=== PATIENT | male | born 1990 | race Caucasian/White ===

== ENCOUNTER 2019-01-15 03:47 | Inpatient (IN) | payer BC ==
[~2019-01-15] VITALS: Ht 185.4 cm; Wt 85.2 kg
[2019-01-15] MEDS ORDERED: SODIUM CHLORIDE 0.9% 1,000 ML IV ONE ×2 (05:06→06:32)
[2019-01-15] MEDS ORDERED: PROMETHAZINE HCL 25 MG/ML 1ML ONE (05:08)
[2019-01-15] MEDS ORDERED: PROMETHAZINE HCL 25 MG/ML 1ML IV ONE (05:15)
[2019-01-15] MEDS ORDERED: PROCHLORPERAZINE EDISYLATE 5 MG/ML 2ML VIAL IV ONE (05:45)
[2019-01-15] MEDS ORDERED: HYDROmorphone HCL 2 MG/ML VL IV ONE ×2 (05:45→12:30)
[2019-01-15] MEDS ORDERED: LORazepam 2MG/ML-1ML VIAL IV ONE (06:45)
[2019-01-15 07:36] LABS: Albumin 3.3 g/dL (3.4-5.0); BUN/Creatinine Ratio 12.5; Calcium 7.7 mg/dL (8.5-10.1); Magnesium 1.5 mg/dL (1.6-2.6); Potassium 3.4 mmol/L (3.5-5.1)
[2019-01-15 07:41] LABS: Hematocrit 25.8 % (41.0-53.0); Hemoglobin 8.7 g/dL (13.5-17.5); Mean Corpuscular Hemoglobin 31.3 pg (28.0-32.0); Mean Corpuscular Hgb Conc. 33.6 g/dL (32.0-36.0); Mean Corpuscular Volume 93.1 fL (80.0-100.0); Platelet Count (auto) 399 10^3/uL (140-450); Red Blood Cells 2.77 10^6/uL (4.5-5.90); Red Cell Distribution Width 17.4 % (11.8-14.3); White Blood Cell 18.9 10^3/uL (4.4-10.8)
[2019-01-15 07:42] LABS: Bilirubin, Total 0.2 mg/dL (0.2-1.0); Total Protein 6.2 g/dL (6.4-8.2)
[2019-01-15 07:44] LABS: Basophils % (manual) 0 (0.0-2.0); Blast Cells 0; Eosinophils % (manual) 0 (0-7); Metamyelocytes % 0; Myelocytes % 0; Promyelocytes % 0; Reactive Lymphocytes 0
[2019-01-15] MEDS ORDERED: MORPHINE SULFATE 4 MG/ML SYR/VIAL IV PRN (09:45)
[2019-01-15] MEDS ORDERED: NITROGLYCERIN 0.4 MG SL TAB SL PRN (09:45)
[2019-01-15] MEDS ORDERED: ACETAMINOPHEN 500 MG TAB PO PRN (09:45)
[2019-01-15 09:59] LABS: % Iron Saturation 6.1 % (20-55); Band Neutrophils % (manual) 2; Lymphocytes % (manual) 7 (10.0-50.0); Monocytes % (manual) 18 (0-12)
[2019-01-15] MEDS: SODIUM CHLORIDE 0.9% 1,000 ML IV SCH ×2 (10:16→17:50)
[2019-01-15] MEDS: cefTRIAXone 1GM/50ML D5W 50 ML IV SCH (10:16)
[2019-01-15] MEDS: HYDROmorphone HCL 2 MG/ML VL IV PRN ×3 (10:18→21:13)
[2019-01-15] MEDS: ONDANSETRON HCL 4 MG/2 ML VIAL IV PRN ×3 (10:18→21:17)
[2019-01-15] MEDS: AZITHROMYCIN 500MG/ 250ML 250 ML IV SCH (10:30)
[2019-01-15] MEDS: IPRATROPIUM BROM 0.5 MG/2.5ML INH SOL NEB SCH ×2 (10:42→19:34)
[2019-01-15] MEDS: ALBUTEROL SULF 2.5 MG/0.5ML(0.5%) NEB SOLN NEB SCH ×2 (10:42→19:34)
[2019-01-15 12:08] VITALS: BP 155/98
[2019-01-15] MEDS ORDERED: GADOPENTETATE DIMEGLUMINE (10MMOL/20 ML) VIAL IV ONE (12:16)
[2019-01-15 12:44] LABS: Urine Bacteria NONE SEEN /hpf (None Seen); Urine Blood Negative /uL (Negative); Urine Specific Gravity 1.013 (1.001-1.035); Urine WBC 1 /hpf (0 - 3)
[2019-01-15] MEDS: LORazepam 0.5 MG TAB PO PRN (13:09)
--- NOTE | 2019-01-15 17:30 | NUR ---
patient arrived to the floor from er via stretcher, family at bedside, he ambulated to the room with a steady gait, was oriented to the room, belongings were noted, bed placed to lowest position, physical assessment performed, home medications reviewed, admitted for pneumonia, denies difficulty breathing, no sob, vs are stable.
[2019-01-15 17:49] VITALS: BP 143/92
[2019-01-15 17:52] VITALS: BP 143/92
[2019-01-15] MEDS ORDERED: METH4TAB7 PO (18:33)
[2019-01-15] MEDS ORDERED: PRO10T PO (18:33)
[2019-01-15] MEDS ORDERED: OMEP20TA PO (18:33)
[2019-01-15] MEDS ORDERED: ONDA-143 PO (18:33)
[2019-01-15] MEDS ORDERED: LORA1TAB12 PO (18:33)
[2019-01-15] MEDS ORDERED: MORP60TA25 PO (18:33)
[2019-01-15] MEDS ORDERED: NAP500T PO (18:33)
[2019-01-15] MEDS: HYDROcodone-ACET 5/325MG TAB PO PRN (18:43)
[2019-01-15] MEDS: DOCUSATE SOD 100 MG CAP PO SCH (21:14)
[2019-01-15 22:00] VITALS: BP 148/39
[2019-01-16] MEDS: HYDROcodone-ACET 5/325MG TAB PO PRN ×3 (00:34→19:41)
--- NOTE | 2019-01-16 04:42 | NUR ---
Pain assessment: Patient said that he don't have pain at this time . Will continue to monitor.
[2019-01-16 04:59] VITALS: BP 144/73
[2019-01-16] MEDS: ALBUTEROL SULF 2.5 MG/0.5ML(0.5%) NEB SOLN NEB SCH ×5 (05:40→21:51)
[2019-01-16] MEDS: IPRATROPIUM BROM 0.5 MG/2.5ML INH SOL NEB SCH ×5 (05:40→21:51)
[2019-01-16 07:06] LABS: Hematocrit 26.9 % (41.0-53.0); Hemoglobin 9.1 g/dL (13.5-17.5); Mean Corpuscular Hemoglobin 31.8 pg (28.0-32.0); Mean Corpuscular Hgb Conc. 33.7 g/dL (32.0-36.0); Mean Corpuscular Volume 94.5 fL (80.0-100.0); Platelet Count (auto) 391 10^3/uL (140-450); Red Blood Cells 2.84 10^6/uL (4.5-5.90); Red Cell Distribution Width 17.6 % (11.8-14.3); White Blood Cell 7.6 10^3/uL (4.4-10.8)
[2019-01-16] MEDS: LORazepam 0.5 MG TAB PO PRN (07:09)
[2019-01-16] MEDS: HYDROmorphone HCL 2 MG/ML VL IV PRN ×3 (07:09→16:29)
[2019-01-16] MEDS: SODIUM CHLORIDE 0.9% 1,000 ML IV SCH ×2 (07:10→16:00)
[2019-01-16 07:11] LABS: BUN/Creatinine Ratio 10.9; Calcium 8.1 mg/dL (8.5-10.1); Potassium 3.6 mmol/L (3.5-5.1)
[2019-01-16 07:18] LABS: Basophils % (manual) 0 (0.0-2.0); Blast Cells 0; Eosinophils % (manual) 0 (0-7); Metamyelocytes % 0; Myelocytes % 0; Promyelocytes % 0; Reactive Lymphocytes 0
--- NOTE | 2019-01-16 07:50 | NUR ---
Opening Shift Note Assumed care of patient, awake and alert and oriented x4. No S/S of distress/SOB or pain. Instructed on POC and to call for assist PRN, will continue to monitor for changes. Patient offered urinal for safety since feels dizzy since admission yet refused.
[2019-01-16] MEDS: cefTRIAXone 1GM/50ML D5W 50 ML IV SCH (08:36)
[2019-01-16] MEDS: ONDANSETRON HCL 4 MG/2 ML VIAL IV PRN ×2 (08:36→16:38)
[2019-01-16 09:42] VITALS: BP 131/60
--- NOTE | 2019-01-16 10:46 | NUR ---
Dr Beauchamp at bedside, made aware patient requesting pain medications.
[2019-01-16] MEDS: DOCUSATE SOD 100 MG CAP PO SCH ×2 (10:49→21:43)
[2019-01-16] MEDS: AZITHROMYCIN 500MG/ 250ML 250 ML IV SCH (10:49)
[2019-01-16] MEDS ORDERED: HYDROCORTISONE ACET 25 MG RECTAL SUPP PR ONE (11:00)
[2019-01-16 13:30] VITALS: BP 119/66
[2019-01-16] MEDS ORDERED: POLYETHYLENE GLYCOL 17 GM PWDR PO ONE (14:00)
[2019-01-16 14:22] LABS: Band Neutrophils % (manual) 5; Lymphocytes % (manual) 25 (10.0-50.0); Monocytes % (manual) 18 (0-12)
[2019-01-16 17:00] VITALS: BP 148/74
[2019-01-16] MEDS ORDERED: LACTULOSE 20Gm/30ML SOLN PO PRN (17:30)
[2019-01-16] MEDS ORDERED: POLYETHYLENE GLYCOL 17 GM PWDR PO PRN (17:30)
--- NOTE | 2019-01-16 17:32 | NUR ---
Dr Mayen made aware that patient continues to c/o dizziness and requesting something for dizziness. New order received for antivert 25mg Q12hP, lactulose 30 mL daily PRN, and Miralax 17gm daily PRN. Will continue to monitor.
[2019-01-16] MEDS: MECLIZINE HCL 25 MG TAB PO PRN (17:40)
--- NOTE | 2019-01-16 19:15 | NUR ---
Patient care and report handed off to Britany WORTHINGTON.
--- NOTE | 2019-01-16 19:30 | NUR ---
ASSUMED CARE, PT. AWAKE, RELATIVE AT BEDSIDE, NO C/O PAIN, NO SOB.
[2019-01-16] MEDS ORDERED: HYDROcodone-ACET 7.5/325MG TAB PO PRN (20:45)
[2019-01-16] MEDS: HYDROCORTISONE ACET 25 MG RECTAL SUPP PR SCH ×2 (21:43→22:00)
[2019-01-16 22:00] VITALS: BP 137/70
[2019-01-17] MEDS ORDERED: POLYETHYLENE GLYCOL 17 GM PWDR PO PRN
[2019-01-17] MEDS: SODIUM CHLORIDE 0.9% 1,000 ML IV SCH ×2 (01:45→11:03)
[2019-01-17] MEDS: HYDROmorphone HCL 2 MG/ML VL IV PRN ×4 (04:22→17:06)
[2019-01-17] MEDS: ONDANSETRON HCL 4 MG/2 ML VIAL IV PRN ×3 (04:22→17:48)
[2019-01-17 04:43] LABS: Hematocrit 28.2 % (41.0-53.0); Hemoglobin 9.3 g/dL (13.5-17.5); Mean Corpuscular Hemoglobin 31.5 pg (28.0-32.0); Mean Corpuscular Hgb Conc. 33.1 g/dL (32.0-36.0); Platelet Count (auto) 434 10^3/uL (140-450); Red Blood Cells 2.97 10^6/uL (4.5-5.90); Red Cell Distribution Width 17.8 % (11.8-14.3); White Blood Cell 8.4 10^3/uL (4.4-10.8)
[2019-01-17 04:53] LABS: BUN/Creatinine Ratio 13.6; Calcium 8.2 mg/dL (8.5-10.1); Potassium 3.9 mmol/L (3.5-5.1)
[2019-01-17 05:00] VITALS: BP 145/92
[2019-01-17 05:03] LABS: Basophils % (manual) 0 (0.0-2.0); Blast Cells 0; Eosinophils % (manual) 0 (0-7); Metamyelocytes % 0; Myelocytes % 0; Promyelocytes % 0; Reactive Lymphocytes 0
[2019-01-17] MEDS: MECLIZINE HCL 25 MG TAB PO PRN (05:40)
[2019-01-17] MEDS: IPRATROPIUM BROM 0.5 MG/2.5ML INH SOL NEB SCH ×3 (06:03→18:29)
[2019-01-17] MEDS: ALBUTEROL SULF 2.5 MG/0.5ML(0.5%) NEB SOLN NEB SCH ×3 (06:03→18:29)
[2019-01-17 06:47] LABS: Band Neutrophils % (manual) 7; Lymphocytes % (manual) 31 (10.0-50.0); Monocytes % (manual) 10 (0-12)
--- NOTE | 2019-01-17 07:50 | NUR ---
Opening Shift Note Assumed care of patient, patient sleeping. at bedside. No S/S of distress/SOB or pain. Will continue to monitor for changes Q1hr and PRN.
[2019-01-17 08:00] VITALS: BP 153/68
[2019-01-17 09:00] VITALS: BP 153/68
[2019-01-17] MEDS: AZITHROMYCIN 500MG/ 250ML 250 ML IV SCH (09:59)
[2019-01-17] MEDS: cefTRIAXone 1GM/50ML D5W 50 ML IV SCH (09:59)
[2019-01-17] MEDS: DOCUSATE SOD 100 MG CAP PO SCH ×2 (10:00→21:37)
[2019-01-17] MEDS: HYDROCORTISONE ACET 25 MG RECTAL SUPP PR SCH ×2 (10:00→21:37)
--- NOTE | 2019-01-17 10:00 | NUR ---
AT BEDSIDE DR. BROWN AT BEDSIDE DISCUSSING POC WITH PATIENT.
--- NOTE | 2019-01-17 12:00 | NUR ---
ROUNDING PATIENT SLEEPING IN BED. NO S/S OF DISTRESS NOTED. WILL CONTINUE TO MONITOR.
[2019-01-17 13:00] VITALS: BP 138/69
[2019-01-17] MEDS: MECLIZINE HCL 25 MG TAB PO SCH ×2 (13:35→21:37)
[2019-01-17 17:00] VITALS: BP 154/88
--- NOTE | 2019-01-17 18:38 | NUR ---
END OF SHIFT PATIENT RESTING IN BED. NO S/S OF DISTRESS. INSTRUCTED PATIENT TO CALL PRN. BED IN LOWEST LOCKED POSITION, CALL LIGHT WITHIN REACH. ENDORSED CARE TO ELIN RANDALL.
--- NOTE | 2019-01-17 19:10 | NUR ---
assumed care, pt. awake, relative at bedside, no c/o pain and nausea at this time, no sob.
[2019-01-17 22:00] VITALS: BP 132/63
[2019-01-18] MEDS: SODIUM CHLORIDE 0.9% 1,000 ML IV SCH (03:25)
[2019-01-18 05:00] VITALS: BP 136/64
[2019-01-18] MEDS: MECLIZINE HCL 25 MG TAB PO SCH ×3 (05:42→08:18)
[2019-01-18] MEDS: ONDANSETRON HCL 4 MG/2 ML VIAL IV PRN ×2 (08:18→18:00)
[2019-01-18] MEDS: HYDROmorphone HCL 2 MG/ML VL IV PRN ×3 (08:19→18:00)
[2019-01-18] MEDS: IPRATROPIUM BROM 0.5 MG/2.5ML INH SOL NEB SCH ×3 (08:20→13:35)
[2019-01-18] MEDS: ALBUTEROL SULF 2.5 MG/0.5ML(0.5%) NEB SOLN NEB SCH ×3 (08:20→13:35)
--- NOTE | 2019-01-18 08:42 | NUR ---
Opening Shift Note Assuming care of patient at this time. Patient is awake, alert, and oriented x4. Patient states he is having pain 7/10 in his back at this time. Will medicate per doctor's orders. Patient is resting in bed with his , bed is locked and lowered with side rails up x2. Instructed patient on the plan of care for today and to call for assistance as needed. Call light within reach. Will continue to monitor.
[2019-01-18 09:00] VITALS: BP 128/79
[2019-01-18] MEDS: cefTRIAXone 1GM/50ML D5W 50 ML IV SCH (09:19)
[2019-01-18] MEDS: DOCUSATE SOD 100 MG CAP PO SCH (09:19)
[2019-01-18] MEDS: HYDROCORTISONE ACET 25 MG RECTAL SUPP PR SCH (09:19)
[2019-01-18] MEDS ORDERED: AZITHROMYCIN 250 MG TAB PO SCH (10:00)
[2019-01-18 10:39] VITALS: BP 128/79
--- NOTE | 2019-01-18 10:45 | NUR ---
Re: at bedside Dr. Beauchamp at bedside. Patient to be discharged, awaiting social service consult for walker.
--- NOTE | 2019-01-18 11:55 | NUR ---
I faxed walker order to [employer].
--- NOTE | 2019-01-18 14:39 | NUR ---
Fax to [facility] Sent a fax to [facility] with prescription from Called [facility] to see if fax was received. Was notified that fax could take 1-2 hours before it shows up in the system. Will call back.
--- NOTE | 2019-01-18 16:08 | NUR ---
Call to [facility] Patient's walker will be delivered between 1529 and 1929. Requested walker to be delivered to home if it's going to be later due to patient being discharged. Awaiting a return call.
[2019-01-18 17:00] VITALS: BP 130/84
--- NOTE | 2019-01-18 18:39 | NUR ---
Re; Discharge Discharge instructions given as ordered. Encourage to follow up with PMD as instructed. All questions and concerns addressed. Patient verbalized understanding. Portacath access discontinued. Walker delivered before discharge. Patient taken to vehicle via walker with all personal belongings, accompanied by staff and family member. No distress noted at time of departure.
== END 2019-01-18 18:35 | disposition home or self-care (01) | DRG 871 ==
LOC: ER 03:49 → OVERFLOW 09:39 → CENTRAL 17:30
PROVIDERS: ADMIT Nurse Practitioner Acute Care; ATTEND Internal Medicine
DX: A41.9 Sepsis, unspecified organism (principal); J18.0 Bronchopneumonia, unspecified organism; E44.1 Mild protein-calorie malnutrition; D64.9 Anemia, unspecified; E86.0 Dehydration; H83.09 Labyrinthitis, unspecified ear; E87.6 Hypokalemia; K64.9 Unspecified hemorrhoids; Z85.47 Personal history of malignant neoplasm of testis; Z90.79 Acquired absence of other genital organ(s); Z68.24 Body mass index [BMI] 24.0-24.9, adult
CPT/HCPCS: 36415; 70450; 70553; 71045; 71250; 74176; 80048; 80053; 81001; 83540; 83550; 83735; 84484; 85007; 85027; 87040; 93005; 94640; 94761; 96361; 96365; 96367; 96375; A6257; G0378; J0696; J2405

== ENCOUNTER 2019-02-07 18:15 | Inpatient (IN) | payer BC ==
[~2019-02-07] VITALS: Ht 185.4 cm; Wt 86.4 kg
[~2019-02-07 18:15] MED LIST: LORA1TAB12 PO; METH4TAB7 PO; MORP60TA25 PO; NAP500T PO; OMEP20TA PO; ONDA-143 PO; PRO10T PO
[2019-02-07] MEDS ORDERED: ONDANSETRON HCL 4 MG/2 ML VIAL IV ONE (18:45)
[2019-02-07] MEDS ORDERED: HYDROmorphone HCL 2 MG/ML VL IV ONE (18:45)
[2019-02-07] MEDS ORDERED: IOHEXOL 350 MG/ML 100ML IJ ONE (18:56)
[2019-02-07 19:35] LABS: Basophils # (auto) 0.1 uL; Eosinophils # (auto) 0.4 uL; Lymphocytes # (auto) 2.1 uL; Lymphocytes % (auto) 20.8 % (10.0-50.0); Mean Corpuscular Hemoglobin 30.5 pg (28.0-32.0); Mean Corpuscular Hgb Conc. 33.2 g/dL (32.0-36.0); Mean Corpuscular Volume 91.8 fL (80.0-100.0); Monocytes # (auto) 0.8 uL; Monocytes % (auto) 8.1 % (0.0-12.0); Neutrophils # (auto) 6.6 uL; Neutrophils % (auto) 66.1 % (37.0-80.0); Platelet Count (auto) 191 10^3/uL (140-450); Red Blood Cells 3.27 10^6/uL (4.5-5.90); Red Cell Distribution Width 14.9 % (11.8-14.3); White Blood Cell 9.9 10^3/uL (4.4-10.8)
[2019-02-07 19:45] LABS: Albumin 3.4 g/dL (3.4-5.0); BUN/Creatinine Ratio 11.3; Potassium 3.6 mmol/L (3.5-5.1)
[2019-02-07 19:48] LABS: Bilirubin, Total 0.4 mg/dL (0.2-1.0); Total Protein 6.1 g/dL (6.4-8.2)
[2019-02-07] MEDS ORDERED: LIDOCAINE 1% HCL (LOCAL ANESTH.) INJ 20ML MDV ONE (20:14)
[2019-02-07] MEDS ORDERED: LIDOCAINE W/ EPINEPHRINE 1% 20ML VIAL ONE (20:17)
[2019-02-07] MEDS ORDERED: NITROGLYCERIN 0.4 MG SL TAB SL PRN (22:00)
[2019-02-07] MEDS ORDERED: LEVOFLOXACIN 500MG 100 ML IV ONE (22:00)
[2019-02-07] MEDS ORDERED: MORPHINE SULF INJ 2 MG/ML SYRINGE 1ML IV PRN (22:00)
[2019-02-07] MEDS ORDERED: ONDANSETRON HCL 4 MG/2 ML VIAL IV PRN (22:00)
[2019-02-07] MEDS ORDERED: TEMAZEPAM 15 MG CAP PO PRN (22:00)
[2019-02-07] MEDS: FAMOTIDINE 20 MG TAB PO SCH (22:30)
[2019-02-07] MEDS: MORPHINE SULF 15mg ER tab PO SCH (22:30)
[2019-02-07 23:00] VITALS: BP 130/68
[2019-02-07] MEDS: MORPHINE SULFATE 4 MG/ML SYR/VIAL IV PRN (23:21)
[2019-02-08] VITALS (7 sets, daily range): BP systolic 104–175; BP diastolic 40–81
[2019-02-08] MEDS: ACETAMINOPHEN 325 MG TAB PO PRN (01:31)
[2019-02-08] MEDS: MORPHINE SULFATE 4 MG/ML SYR/VIAL IV PRN ×4 (03:21→14:29)
[2019-02-08] MEDS: LORazepam 0.5 MG TAB PO PRN ×2 (03:22→22:04)
[2019-02-08] MEDS: FAMOTIDINE 20 MG TAB PO SCH ×2 (09:46→21:31)
[2019-02-08] MEDS: MORPHINE SULF 15mg ER tab PO SCH (09:46)
[2019-02-08] MEDS ORDERED: LEVOFLOXACIN 500MG 100 ML IV SCH (10:00)
[2019-02-08] MEDS: MORPHINE SULFATE 10 MG/5 ML ORAL SOLN PO PRN ×3 (15:49→21:31)
[2019-02-08] MEDS: MORPHINE SULF 30 mg ER tab PO SCH (22:04)
[2019-02-09] MEDS: MORPHINE SULFATE 10 MG/5 ML ORAL SOLN PO PRN ×7 (00:22→21:00)
[2019-02-09 05:00] VITALS: BP 144/69
[2019-02-09 09:00] VITALS: BP 115/62
[2019-02-09] MEDS: FAMOTIDINE 20 MG TAB PO SCH ×2 (10:24→21:57)
[2019-02-09] MEDS: MORPHINE SULF 30 mg ER tab PO SCH ×3 (10:25→21:57)
[2019-02-09] MEDS ORDERED: HYDR2TAB58 PO (12:02)
[2019-02-09] MEDS ORDERED: ALPR0.5T7 PO (12:02)
[2019-02-09] MEDS: ACETAMINOPHEN 325 MG TAB PO PRN (12:57)
[2019-02-09 13:00] VITALS: BP 129/68
[2019-02-09 16:43] VITALS: BP 109/49
[2019-02-09] MEDS: LORazepam 0.5 MG TAB PO PRN (17:10)
[2019-02-09 22:00] VITALS: BP 154/71
[2019-02-10] MEDS: MORPHINE SULFATE 10 MG/5 ML ORAL SOLN PO PRN ×6 (03:50→23:47)
[2019-02-10 04:46] VITALS: BP 133/61
[2019-02-10] MEDS: ALBUTEROL SULF 2.5 MG/0.5ML(0.5%) NEB SOLN NEB PRN ×2 (07:09→23:18)
[2019-02-10 09:00] VITALS: BP 138/68
[2019-02-10] MEDS: FAMOTIDINE 20 MG TAB PO SCH ×2 (10:23→22:04)
[2019-02-10] MEDS: MORPHINE SULF 30 mg ER tab PO SCH ×2 (11:54→22:04)
[2019-02-10 13:00] VITALS: BP 145/67
[2019-02-10 17:00] VITALS: BP 109/57
[2019-02-10 22:00] VITALS: BP 119/52
[2019-02-11] MEDS: MORPHINE SULFATE 10 MG/5 ML ORAL SOLN PO PRN ×7 (03:03→23:02)
[2019-02-11] MEDS: ACETAMINOPHEN 325 MG TAB PO PRN (03:11)
[2019-02-11 04:23] VITALS: BP 119/52
[2019-02-11 05:00] VITALS: BP 128/52
[2019-02-11 08:00] VITALS: BP 146/61
[2019-02-11 09:21] VITALS: BP 146/61
[2019-02-11] MEDS: MORPHINE SULF 30 mg ER tab PO SCH ×2 (09:30→22:06)
[2019-02-11] MEDS: FAMOTIDINE 20 MG TAB PO SCH ×2 (09:30→22:03)
[2019-02-11 12:24] VITALS: BP 109/62
[2019-02-11 17:18] VITALS: BP 122/78
[2019-02-11 17:43] LABS: INR 0.91 (0.9-1.15); Partial Thromboplastin Time 30.1 sec (23.78-33.04); Prothrombin Time 9.8 sec (9.27-12.13)
[2019-02-11] MEDS: NAPROXEN 500 MG TAB PO PRN (18:01)
[2019-02-11] MEDS: LORazepam 0.5 MG TAB PO PRN (22:10)
[2019-02-12] MEDS: NAPROXEN 500 MG TAB PO PRN (00:30)
[2019-02-12] MEDS: MORPHINE SULFATE 10 MG/5 ML ORAL SOLN PO PRN ×5 (02:22→20:58)
[2019-02-12 05:00] VITALS: BP 111/55
[2019-02-12 09:02] VITALS: BP 116/62
[2019-02-12] MEDS: FAMOTIDINE 20 MG TAB PO SCH ×2 (09:28→20:55)
[2019-02-12] MEDS: MORPHINE SULF 30 mg ER tab PO SCH ×2 (09:30→21:59)
[2019-02-12] MEDS ORDERED: POTASSIUM CHL 20 Meq TABLET PO ONE (12:15)
[2019-02-12] MEDS ORDERED: FUROSEMIDE 20 MG/2 ML VIAL IV ONE (12:15)
[2019-02-12] MEDS ORDERED: MORPHINE SULF INJ 2 MG/ML SYRINGE 1ML IV PRN (12:30)
[2019-02-12 12:46] VITALS: BP 153/66
[2019-02-12] MEDS: ALPRAZolam 0.5 MG TAB PO PRN ×2 (13:50→21:55)
[2019-02-12 17:28] VITALS: BP 109/54
[2019-02-12] MEDS: ALBUTEROL SULF 2.5 MG/0.5ML(0.5%) NEB SOLN NEB PRN (20:11)
[2019-02-12 22:00] VITALS: BP 123/60
[2019-02-13] MEDS: MORPHINE SULFATE 10 MG/5 ML ORAL SOLN PO PRN ×4 (03:50→14:20)
[2019-02-13 05:00] VITALS: BP 98/50
[2019-02-13] MEDS: NAPROXEN 500 MG TAB PO PRN (05:13)
[2019-02-13] MEDS: ALPRAZolam 0.5 MG TAB PO PRN ×2 (05:53→16:36)
[2019-02-13] MEDS: ALBUTEROL SULF 2.5 MG/0.5ML(0.5%) NEB SOLN NEB PRN (07:07)
[2019-02-13] MEDS ORDERED: guaiFENesin-DM 100/10mg/5ml SYR PO ONE (07:15)
[2019-02-13 09:14] VITALS: BP 135/65
[2019-02-13] MEDS: MORPHINE SULF 30 mg ER tab PO SCH (09:30)
[2019-02-13] MEDS: FAMOTIDINE 20 MG TAB PO SCH (09:30)
[2019-02-13 12:03] VITALS: BP 134/67
[2019-02-13 17:01] VITALS: BP 128/66
== END 2019-02-13 17:56 | disposition home or self-care (01) | DRG 199 ==
LOC: ER 18:18 → TELE 22:07 → TELE-WESTW 22:58 → WEST WING 02-08 15:29
PROVIDERS: ADMIT Nurse Practitioner; ATTEND Internal Medicine
PROC: 02HV33Z Insertion of Infusion Device into Superior Vena Cava, Percutaneous Approach (ICD-10-PCS; principal; 2019-02-07)
PROC: 0W9930Z Drainage of Right Pleural Cavity with Drainage Device, Percutaneous Approach (ICD-10-PCS; 2019-02-08)
DX: J93.83 Other pneumothorax (principal); J96.00 Acute respiratory failure, unspecified whether with hypoxia or hypercapnia; J98.11 Atelectasis; G89.29 Other chronic pain; C62.90 Malignant neoplasm of unspecified testis, unspecified whether descended or undescended; D64.9 Anemia, unspecified; I10 Essential (primary) hypertension; Z85.47 Personal history of malignant neoplasm of testis
CPT/HCPCS: 36415; 36600; 71045; 71275; 80053; 82805; 85025; 85610; 85730; 87081; 93005; 94640; 94761; 96365; 96367; 96375; A6257; G0378; J1642; J1956; J2001; J2405

== ENCOUNTER 2019-02-19 10:08 | Inpatient (IN) | payer BC ==
[~2019-02-19] VITALS: Ht 185.4 cm; Wt 82.0 kg
[~2019-02-19 10:08] MED LIST changes: +ALPR0.5T7 PO; +HYDR2TAB58 PO
[2019-02-19] MEDS ORDERED: ONDANSETRON HCL 4 MG/2 ML VIAL ONE (10:15)
[2019-02-19] MEDS ORDERED: LIDOCAINE 2% (LOCAL ANESTH.) PF 5ml SDV ONE (10:17)
[2019-02-19] MEDS ORDERED: ONDANSETRON HCL 4 MG/2 ML VIAL IV ONE (10:30)
[2019-02-19] MEDS ORDERED: MORPHINE SULFATE 4 MG/ML SYR/VIAL ONE (10:32)
[2019-02-19] MEDS ORDERED: SODIUM CHLORIDE 0.9% 1,000 ML IV ONE ×2 (10:44)
[2019-02-19] MEDS ORDERED: MORPHINE SULFATE 4 MG/ML SYR/VIAL IV ONE (10:45)
[2019-02-19] MEDS ORDERED: HYDROmorphone HCL 2 MG/ML VL IV ONE ×2 (10:45→14:00)
[2019-02-19 11:21] LABS: Basophils # (auto) 0.1 uL; Basophils % (auto) 1.1 % (0.0-2.0); Eosinophils # (auto) 0.7 uL; Eosinophils % (auto) 9.1 % (0.0-7.0); Hematocrit 33.5 % (41.0-53.0); Hemoglobin 10.9 g/dL (13.5-17.5); Lymphocytes # (auto) 1.9 uL; Lymphocytes % (auto) 25.5 % (10.0-50.0); Mean Corpuscular Hemoglobin 28.4 pg (28.0-32.0); Mean Corpuscular Hgb Conc. 32.5 g/dL (32.0-36.0); Mean Corpuscular Volume 87.4 fL (80.0-100.0); Monocytes # (auto) 0.5 uL; Monocytes % (auto) 6.9 % (0.0-12.0); Neutrophils # (auto) 4.2 uL; Neutrophils % (auto) 57.4 % (37.0-80.0); Platelet Count (auto) 297 10^3/uL (140-450); Red Blood Cells 3.84 10^6/uL (4.5-5.90); Red Cell Distribution Width 15.4 % (11.8-14.3); White Blood Cell 7.3 10^3/uL (4.4-10.8)
[2019-02-19] MEDS ORDERED: HYDROcodone-ACET 5/325MG TAB PO PRN (11:30)
[2019-02-19] MEDS ORDERED: HYDROmorphone HCL 2 MG/ML VL IV PRN (11:30)
[2019-02-19 11:37] LABS: INR 0.98 (0.9-1.15); Partial Thromboplastin Time 26.3 sec (23.78-33.04); Prothrombin Time 10.5 sec (9.27-12.13)
[2019-02-19 12:38] LABS: Anion Gap 4 (5-15); BUN/Creatinine Ratio 18.8; Blood Urea Nitrogen 15 mg/dL (7-18); Calcium 8.6 mg/dL (8.5-10.1); Carbon Dioxide 31 mmol/L (21-32); Chloride 105 mmol/L (98-107); GFR African American 147 mL/min; GFR Non-African American 121 mL/min; Glucose 94 mg/dL (74-106); Potassium 3.8 mmol/L (3.5-5.1); Sodium 140 mmol/L (136-145)
[2019-02-19 12:43] LABS: Alanine Aminotransferase 11 U/L (16-61); Alkaline Phosphatase 59 U/L (45-117); Aspartate Aminotransferase 16 U/L (15-37); Bilirubin, Total 0.3 mg/dL (0.2-1.0); Total Protein 6.2 g/dL (6.4-8.2)
[2019-02-19] MEDS ORDERED: LORazepam 2MG/ML-1ML VIAL ONE (13:59)
[2019-02-19] MEDS ORDERED: LORazepam 2MG/ML-1ML VIAL IV PRN (14:00)
[2019-02-19] MEDS ORDERED: LORazepam 2MG/ML-1ML VIAL IV ONE (14:30)
[2019-02-19 15:18] LABS: Urine Bacteria NONE SEEN /hpf (None Seen); Urine Blood Negative /uL (Negative); Urine Specific Gravity 1.018 (1.001-1.035); Urine WBC <1 /hpf (0 - 3)
[2019-02-19] MEDS ORDERED: MORPHINE SULFATE 10 MG/5 ML ORAL SOLN PO PRN (16:20)
[2019-02-19 17:00] VITALS: BP 140/76
[2019-02-19] MEDS: HYDROmorphone HCL 2 MG/ML VL IV PRN ×2 (17:43→22:03)
[2019-02-19 18:26] VITALS: BP 140/76
--- NOTE | 2019-02-19 20:10 | NUR ---
Spoke to Martin and he provided order to connect hiemlech valce to pleuravac 20 cm h2o.
--- NOTE | 2019-02-19 20:15 | NUR ---
Notified charge nurse of Heimlich valve needs to be connected to pleura vac.
--- NOTE | 2019-02-19 20:20 | NUR ---
Called CT/ radiology department to confirm CT of the chest is going to be completed. no answer.
--- NOTE | 2019-02-19 20:25 | NUR ---
washing and screening plant supervisor called for assistance for pleuravac, heimlech valve connection. awaiting arrival.
--- NOTE | 2019-02-19 20:50 | NUR ---
Called tool lathe operator to connect me to CT/ radiology department to confirm CT of the chest is going to be completed. no answer by CT/radiology department.
--- NOTE | 2019-02-19 21:00 | NUR ---
called CT and no answer.
[2019-02-19] MEDS: MORPHINE SULF 15mg ER tab PO SCH (21:10)
[2019-02-19 21:56] VITALS: BP 139/68
[2019-02-19 22:00] VITALS: BP 107/64
--- NOTE | 2019-02-19 22:00 | NUR ---
Called/paged BEDSPRING ASSEMBLER Chino Hyde paged re: anxiety and hyperacidity medication . Waiting for call back. Continue care.
[2019-02-19] MEDS: DOCUSATE SOD 100 MG CAP PO PRN (22:03)
--- NOTE | 2019-02-19 22:05 | NUR ---
heimlech valve connected to pleuravac as ordered.
--- NOTE | 2019-02-19 22:24 | NUR ---
returned call BRITTANI Gunter returned call, updated on patient status and reason for call, orders received.May give Ativan 1 mg PO and Tums 1 tab PO x 1. Continue care.
[2019-02-19] MEDS ORDERED: CALCIUM CARB 500 MG CHEW TAB PO ONE (22:30)
[2019-02-19] MEDS ORDERED: LORazepam 0.5 MG TAB PO PRN (22:30)
[2019-02-19] MEDS ORDERED: OMEP20TA PO (22:49)
[2019-02-19] MEDS ORDERED: MORP30TA PO (22:49)
[2019-02-19 23:20] VITALS: BP 140/66
--- NOTE | 2019-02-19 23:45 | NUR ---
Called radiology to confirm chest ct. no answer.
[2019-02-20 00:24] VITALS: BP 149/61
--- NOTE | 2019-02-20 00:25 | NUR ---
spoke to hospitalist eder and notified patient is having chest tightness and also having shortness of breath. Eder provided order to do ekg and have stat troponin.
--- NOTE | 2019-02-20 00:27 | NUR ---
called lab to confirm troponin draw. they advised they will be here as soon as possible
--- NOTE | 2019-02-20 00:33 | NUR ---
Called household coordinator to notify that CT/radiology is not picking up.
--- NOTE | 2019-02-20 00:40 | NUR ---
showed ekg printout to [facility] hospitalist and had him sign off on ekg. result is normal sinus rhythm. [facility] provided new order of chest xray to check patency of heimlech valve.
--- NOTE | 2019-02-20 00:45 | NUR ---
account technician at bedside to take down stairs to chest ct and chest xray.
[2019-02-20] MEDS: ONDANSETRON HCL 4 MG/2 ML VIAL IV PRN ×3 (02:02→18:15)
[2019-02-20] MEDS: HYDROmorphone HCL 2 MG/ML VL IV PRN ×6 (02:02→22:16)
--- NOTE | 2019-02-20 03:04 | NUR ---
Called CT/radiology to follow up with chest xray stat and chest ct. warehouse technician provided number to call [phone]. called that number, and they advised me that they will look into the chest xray and chest ct. Awaiting results.
--- NOTE | 2019-02-20 03:28 | NUR ---
barrett at bedside with tracy MONAE. Addendum: 02/20/19 at 0343 by Ivan Casey RN BRITTANI Hyde and MD Rice at bedside to assess patient. Krystal MONAE and Barrett PETER advanced heimlech valve, provided order to give dilauded 0.5 mg iv now one time dose, and to put chest xray schedule at 1000 am. read back and confirmed.
[2019-02-20] MEDS ORDERED: HYDROmorphone HCL 2 MG/ML VL IV ONE ×2 (03:30→20:45)
[2019-02-20] MEDS ORDERED: HYDROmorphone HCL 2 MG/ML VL ONE (03:32)
[2019-02-20 03:45] VITALS: BP 142/64
[2019-02-20 04:56] VITALS: BP 142/64
--- NOTE | 2019-02-20 07:37 | NUR ---
Provided report to Alyssa WORTHINGTON. Patient is resting comfortably in bed with no signs of distress.
--- NOTE | 2019-02-20 08:00 | NUR ---
Opening Shift Note Assumed care of patient, awake and alert, at bedside. Chest drain in place, drainage marked. On 4L N/C with humidifier. Discussed home medications, med rec updated by NOC weigher and charger. Will speak with MD about continuing home medications. No S/S of distress/SOB or pain. Instructed on POC and to call for assist PRN, will continue to monitor for changes Q1hr and PRN. NOTE: Request sent to kitchen for dinner guest tray.
[2019-02-20] MEDS: MORPHINE SULF 15mg ER tab PO SCH ×2 (08:53→21:43)
[2019-02-20] MEDS: PANTOPRAZOLE 40 MG TAB PO SCH (08:53)
--- NOTE | 2019-02-20 09:07 | NUR ---
Medicated for pain. Patient able to stand bedside to void in urinal. 200ml clear yellow liquid voided. Patient tolerated well. Call light in reach.
--- NOTE | 2019-02-20 10:00 | NUR ---
PORTABLE CXR BEDSIDE
[2019-02-20 12:04] VITALS: BP 140/65
--- NOTE | 2019-02-20 12:56 | NUR ---
ROUNDING Dr Tadeo rounding on patient. Discussed test results and pain management. MD will review home medications and update orders.
[2019-02-20] MEDS ORDERED: POLYETHYLENE GLYCOL 17 GM PWDR PO PRN (13:30)
[2019-02-20] MEDS ORDERED: POLYETHYLENE GLYCOL 17 GM PWDR PO ONE (13:30)
[2019-02-20] MEDS: ALPRAZolam 0.5 MG TAB PO SCH ×2 (14:11→21:43)
--- NOTE | 2019-02-20 14:33 | NUR ---
TELEPHONE ORDER Telephone order received from Dr Guzman to increase suction on chest tube to 35 and repeat chest x-ray now. Chest tube drainage marked at 45ml. Orders noted and carried out, patient tolerating well.
--- NOTE | 2019-02-20 15:33 | NUR ---
DR GUZMAN PAGED Patient complains of feeling "something wrong" and "pressure and pain" to left upper chest. Chest tube drainage at 65ml output. Tube free of kinks, connected to suction as ordered. Patient on 4L N/C, at bedside. Dr Guzman paged.
--- NOTE | 2019-02-20 15:39 | NUR ---
VITAL SIGNS Current vitals signs: BP 135/63, taken on left leg, Heart Rate 94, O2 96% on 4L NC.
--- NOTE | 2019-02-20 15:50 | NUR ---
DR GUZMAN BEDSIDE Dr Guzman removed dressing and assessed valve. MD changed connection on valve. Orders given, will carry out and continue to monitor.
--- NOTE | 2019-02-20 16:00 | NUR ---
Valve does not connect as MD instructed. Dressing secured. Dr Guzman paged, Charge Nurse notified and Radiology paged over head. Patient remains stable. Call light in reach.
--- NOTE | 2019-02-20 16:30 | NUR ---
Telephone orders Dr Guzman returned page, orders given and carried out. Patient states he feels much better. Family at bedside.
[2019-02-20 16:34] VITALS: BP 135/63
[2019-02-20] MEDS: LORazepam 0.5 MG TAB PO PRN (17:44)
--- NOTE | 2019-02-20 18:16 | NUR ---
ROUNDING Patient asking for medications for pain and nausea. Medicated as ordered. Provide with ice chips and water. Patient comfortable at this time. No distress or pain. Quiet environment provided for patient to rest.
[2019-02-20] MEDS: ACETAMINOPHEN 500 MG TAB PO PRN (20:18)
[2019-02-20] MEDS: CALCIUM CARB 500 MG CHEW TAB PO SCH (21:43)
[2019-02-21] MEDS: LORazepam 0.5 MG TAB PO PRN ×3 (00:57→19:47)
[2019-02-21] MEDS: HYDROmorphone HCL 2 MG/ML VL IV PRN ×6 (02:17→22:26)
[2019-02-21] MEDS: ONDANSETRON HCL 4 MG/2 ML VIAL IV PRN ×3 (02:17→18:20)
[2019-02-21 04:45] VITALS: BP 111/48
[2019-02-21] MEDS: ALPRAZolam 0.5 MG TAB PO SCH ×3 (06:18→22:01)
--- NOTE | 2019-02-21 07:00 | NUR ---
DRAINAGE 24ML OF DRAINAGE FROM CHEST TUBE. CHEST TUBE FREE OF KINKS. SUCTIONING. DRESSING SECURED. WILL CONTINUE TO MONITOR.
--- NOTE | 2019-02-21 08:00 | NUR ---
Opening Shift Note Assumed care of patient, awake and alert. No S/S of distress/SOB. Patients bedside. Per patient request, dressing to chest valve replaced and secured, drainage canister to gravity, free of kinks, draining fluid. Suction set as ordered, water seal free of leaks. Instructed on POC and to call for assist PRN, will continue to monitor for changes Q1hr and PRN. NOTE: Patient reports voiding BM this morning.
[2019-02-21] MEDS: MORPHINE SULF 15mg ER tab PO SCH ×2 (09:46→22:00)
[2019-02-21] MEDS: CALCIUM CARB 500 MG CHEW TAB PO SCH ×2 (09:46→22:00)
[2019-02-21] MEDS: PANTOPRAZOLE 40 MG TAB PO SCH (09:46)
[2019-02-21 09:47] VITALS: BP 136/84
--- NOTE | 2019-02-21 09:52 | NUR ---
ROUNDS Patients morning medications administered as ordered. Patient states "I feel much better". Patients remains bedside.
--- NOTE | 2019-02-21 10:30 | NUR ---
DR KATHERINE Tadeo rounding on patient.
--- NOTE | 2019-02-21 10:50 | NUR ---
DR RICHTER ROUNDING ON PATIENT.
--- NOTE | 2019-02-21 11:11 | NUR ---
IV removal IV site to left AC painful. Patient requests for IV to be removed. IV DC'd with clean sterile technique, catheter fully intact. Pressure dressing applied to site. Patient tolerated well. NOTE: Attempted to restart IV unsuccessful. Patient agreed to have Port accessed if ok with MD. Dr Carlyle ordoñez.
--- NOTE | 2019-02-21 11:14 | NUR ---
Telephone order T/O read back to access port.
--- NOTE | 2019-02-21 11:33 | NUR ---
KARLIE CATH ACCESSED Patient tolerated well. Dressing placed.
[2019-02-21] MEDS: ACETYLCYSTEINE 10 %(100MG/ML) SOL 4ML NEB SCH ×2 (12:00→19:30)
[2019-02-21] MEDS: IPRATROPIUM BROM 0.5 MG/2.5ML INH SOL NEB SCH ×2 (12:26→19:29)
[2019-02-21] MEDS: ALBUTEROL SULF 2.5 MG/0.5ML(0.5%) NEB SOLN NEB SCH ×2 (12:26→19:29)
[2019-02-21 14:42] VITALS: BP 126/63
[2019-02-21 14:47] VITALS: BP 136/84
--- NOTE | 2019-02-21 14:55 | NUR ---
DR ALVARADO BEDSIDE MD at bedside assessing chest tube. MD states "it looks good". MD will come back tomorrow to check on patient.
[2019-02-21 17:21] VITALS: BP 122/61
--- NOTE | 2019-02-21 18:43 | NUR ---
COMPLETE LINEN CHANGE PROVIDED.
--- NOTE | 2019-02-21 19:45 | NUR ---
RECEIVED PT IN BED, A/O X4, IN NO ACUTE DISTRESS/DISCOMFORT. PT REQUESTING FOR ATIVAN, WILL MEDICATE ORDERED. POC REVIEWED WITH PT, VERBALIZED UNDERSTANDING. ENCOURAGED USE OF IS, VERBALIZED UNDERSTANDING AND RETURNED DEMO. HEIMLICH VALVE CONNECTED TO WALL SUCTION, TUBINGS PATENT. CALL LIGHT WITHIN REACH, ENCOURAGED TO CALL IF HELP IS NEEDED. SIDE RAILS UP X2, BED IN LOWEST LOCKED POSITION. CONTINUE CARE.
[2019-02-21] MEDS: ACETAMINOPHEN 500 MG TAB PO PRN (21:07)
[2019-02-21 22:00] VITALS: BP 128/72
[2019-02-22] MEDS: ALBUTEROL SULF 2.5 MG/0.5ML(0.5%) NEB SOLN NEB SCH ×4 (01:46→19:16)
[2019-02-22] MEDS: LORazepam 0.5 MG TAB PO PRN ×3 (01:47→20:09)
[2019-02-22] MEDS: IPRATROPIUM BROM 0.5 MG/2.5ML INH SOL NEB SCH ×4 (01:47→19:16)
[2019-02-22] MEDS: ACETYLCYSTEINE 10 %(100MG/ML) SOL 4ML NEB SCH ×2 (01:47→06:00)
[2019-02-22] MEDS: HYDROmorphone HCL 2 MG/ML VL IV PRN ×6 (02:23→22:34)
[2019-02-22] MEDS: ONDANSETRON HCL 4 MG/2 ML VIAL IV PRN ×3 (02:23→22:35)
[2019-02-22 05:00] VITALS: BP 120/57
[2019-02-22] MEDS: ALPRAZolam 0.5 MG TAB PO SCH ×3 (05:44→21:38)
[2019-02-22 08:00] VITALS: BP 113/65
[2019-02-22 09:00] VITALS: BP 113/65
[2019-02-22] MEDS: MORPHINE SULF 15mg ER tab PO SCH (09:17)
[2019-02-22] MEDS: PANTOPRAZOLE 40 MG TAB PO SCH (09:17)
[2019-02-22] MEDS: CALCIUM CARB 500 MG CHEW TAB PO SCH ×2 (09:17→21:38)
--- NOTE | 2019-02-22 11:34 | NUR ---
Nutrition Assessment Notes please see attached link for complete assessment Est. Needs BW [id number] kcal (25-30 kcal/kgBW), 82-98 gms pro (1.0-1.2 gms/kgBW). Will continue to monitor pertinent labs and reassess nutrient need prn Addendum: 02/22/19 at [address] Amended: Links added.
[2019-02-22 13:00] VITALS: BP 131/66
--- NOTE | 2019-02-22 13:55 | NUR ---
SS ORDER: [facility] PH [phone] IS WORKING ON GETTING W/C TO PT, THEY ARE REVIEWING NOTES/ORDERS, IF APPROVED W/C WILL BE DELIVERED AT BEDSIDE TODAY.
--- NOTE | 2019-02-22 13:58 | NUR ---
INFORMED PRIMARY RN THAT PT/FAMILY WILL HAVE TO CALL HIS 02 COMPANY, [employer] ([phone]) FOR REFILL OF 02 TANKS, THIS 02 COMPANY WAS SET UP FOR PT ON PREVIOUS ADMISSION.
--- NOTE | 2019-02-22 15:46 | NUR ---
02 ORDER FAXED TO [facility] TO [facility] PH [phone] EXT [phone].
[2019-02-22 17:00] VITALS: BP 130/62
--- NOTE | 2019-02-22 18:41 | NUR ---
Chest tube Drainage 32mL of drainage from chest tube.
--- NOTE | 2019-02-22 19:50 | NUR ---
RECEIVED PT IN BED, A/O X4, IN NO ACUTE DISTRESS/DISCOMFORT. PT REQUESTING FOR ATIVAN, WILL MEDICATE ORDERED. POC/PAIN/ANXIETY REGIMEN REVIEWED WITH PT, VERBALIZED UNDERSTANDING. ENCOURAGED USE OF IS, VERBALIZED UNDERSTANDING AND RETURNED DEMO. HEIMLICH VALVE CONNECTED TO WALL SUCTION, TUBINGS PATENT. CALL LIGHT WITHIN REACH, ENCOURAGED TO CALL IF HELP IS NEEDED. SIDE RAILS UP X2, BED IN LOWEST LOCKED POSITION. AT BEDSIDE. CONTINUE CARE.
[2019-02-22] MEDS: MORPHINE SULF 30 mg ER tab PO SCH (21:38)
[2019-02-22 22:00] VITALS: BP 121/54
--- NOTE | 2019-02-23 00:10 | NUR ---
INSURANCE ACCOUNT MANAGER Called/paged Marlee Jessica INSURANCE ACCOUNT MANAGER called re:pt requesting to have dose of ativan increased; pt was already educated on regimen. Waiting for call back. Continue care.
[2019-02-23] MEDS: LORazepam 0.5 MG TAB PO PRN ×3 (02:00→18:23)
[2019-02-23] MEDS: HYDROmorphone HCL 2 MG/ML VL IV PRN ×3 (02:35→10:15)
[2019-02-23 05:00] VITALS: BP 131/68
--- NOTE | 2019-02-23 05:10 | NUR ---
AUTOMATIC PATTERN EDGER Called/paged Marlee Jessica AUTOMATIC PATTERN EDGER called re:heimlich valve leaking/bubbling from front of device, no cxr ordered for am. Dsg changed, tolerated well. All tubings patent connected to wall suction. Waiting for call back. Continue care.
[2019-02-23] MEDS: ALPRAZolam 0.5 MG TAB PO SCH ×3 (05:36→21:38)
[2019-02-23] MEDS: ACETAMINOPHEN 500 MG TAB PO PRN ×2 (05:36→16:00)
--- NOTE | 2019-02-23 06:30 | NUR ---
FULFILLMENT ASSOCIATE Called/paged Marlee Jessica FULFILLMENT ASSOCIATE called re:sob; desats on 4l, rt at bedside, pt was placed on non rebreather mask-15 lpm, o2 sat now low 90s, pt awake, talking. Waiting for call back. Continue care.
[2019-02-23] MEDS: IPRATROPIUM BROM 0.5 MG/2.5ML INH SOL NEB SCH ×4 (06:32→18:54)
[2019-02-23] MEDS: ALBUTEROL SULF 2.5 MG/0.5ML(0.5%) NEB SOLN NEB SCH ×4 (06:32→18:54)
--- NOTE | 2019-02-23 06:32 | NUR ---
UPON ASSESSING PT FOR MED NEB TX IN AM, PT IN DISTRESS WITH SPO2 55-70% ON 6L NC WITH RR IN 40'S USING ACCESSORY MUSCLES. PT DIAPHORETIC. BS WERE LEFT LUNG DIMINISHED AND RIGHT LUNG CLEAR. NOC RN NOTIFIED. ABG ORDERED AND DRAWN. NO CRITICAL VALUES OBTAINED. BIPAP WAS SUGGESTED. XRAY WAS CALLED IMMEDIATELY. XRAY SHOWED LARGE PNEUMOTHORAX AT LEFT LUNG FIELD. BIPAP WAS PUT ON HOLD. RN NOTIFIED. WILL CONTINUE TO MONITOR PT.
[2019-02-23] MEDS: ONDANSETRON HCL 4 MG/2 ML VIAL IV PRN ×3 (06:35→23:32)
--- NOTE | 2019-02-23 06:55 | NUR ---
LOAN OPERATIONS SPECIALIST returned call Marlee Jessica LOAN OPERATIONS SPECIALIST returned call, updated on patient status and reason for call, orders received for stat abg, bipap, cxr. RT at bedside doing abg. Pt updated on POC. Continue care.
--- NOTE | 2019-02-23 07:20 | NUR ---
Opening Shift Note Assumed care of patient, awake and alert. Patient currently on non rebreather with shortness of breath. Awaiting stat chest x ray results. Instructed on POC and to call for assist PRN, will continue to monitor for changes Q1hr and PRN.
--- NOTE | 2019-02-23 07:39 | NUR ---
Hospitalist Shawn Recieved call from radiologist that left pneumo looks worse. Radiologist recommends new chest tube instead of heimlich valve, Addendum: 02/23/19 at 0812 by JOEL ELISE RN Received call back notified hospitalist
[2019-02-23 08:00] VITALS: BP 127/54
--- NOTE | 2019-02-23 08:26 | NUR ---
Dr. Guzman paged Dr. Guzman paged for chest tube placement.
[2019-02-23 09:00] VITALS: BP 127/54
[2019-02-23] MEDS: MORPHINE SULF 30 mg ER tab PO SCH ×2 (09:23→21:39)
[2019-02-23] MEDS: CALCIUM CARB 500 MG CHEW TAB PO SCH ×2 (09:24→21:35)
[2019-02-23] MEDS: PANTOPRAZOLE 40 MG TAB PO SCH (09:24)
[2019-02-23] MEDS ORDERED: HYDROmorphone HCL 2 MG/ML VL IV PRN (10:30)
[2019-02-23] MEDS ORDERED: LIDOCAINE 2% (LOCAL ANESTH.) PF 5ml SDV ONE ×5 (11:36→11:56)
--- NOTE | 2019-02-23 12:00 | NUR ---
MED NEB NOT GIVEN AT THIS TIME, PT AT A PROCEDURE. PT IS AWARE OF PRN MED NEB AND WILL CALL IF HE FEELS SOB. WILL CONTINUE TO MONITOR PT.
--- NOTE | 2019-02-23 12:00 | NUR ---
LEFT CHEST TUBE DR PRICE AT BEDSIDE FOR LEFT CHEST TUBE PLACEMENT.
[2019-02-23] MEDS ORDERED: HYDROmorphone HCL 2 MG/ML VL IV ONE (12:15)
[2019-02-23] MEDS ORDERED: LIDOCAINE 2%HCL (LOCAL ANESTH.) INJ 10ml MDV IJ ONE (12:30)
[2019-02-23 13:00] VITALS: BP 134/54
[2019-02-23] MEDS: Ensure Enlive Chocolate 8oz Bottle PO SCH ×2 (13:14→18:24)
[2019-02-23] MEDS: HYDROmorphone HCL 2 MG/ML VL IV SCH ×7 (14:07→23:32)
[2019-02-23] MEDS: ALBUTEROL SULF 2.5 MG/0.5ML(0.5%) NEB SOLN NEB PRN (16:11)
[2019-02-23] MEDS: IPRATROPIUM BROM 0.5 MG/2.5ML INH SOL NEB PRN (16:11)
[2019-02-23 17:00] VITALS: BP 157/65
--- NOTE | 2019-02-23 19:22 | NUR ---
CHEST TUBE DRAINAGE 140Ml NOTED IN NEW LEFT CHEST TUBE OVER SHIFT. NO NEW OUTPUT NOTED FROM HEIMLICH VALVE PERIVAC.
--- NOTE | 2019-02-23 20:30 | NUR ---
OPEN NOTE assumed care of pt. awake and alert upon nurse entering room. pt sitting up, heimlich valve and 2 corresponding tubes protruding from left upper chest. left chest tube present and all tubing from both sites connected to continuous wall suction at -20mmhg. pt on 14L via non rebreather mask. no distress noted at this time. pt complaints of pain, will be medicated per MD order. significant other a bedside. pt updated on plan of care. no additional questions at this time. call light in reach, nurse name and number written on board. will round q1hr and prn.
[2019-02-23 22:00] VITALS: BP 112/71
[2019-02-24] VITALS (12 sets, daily range): BP systolic 93–123; BP diastolic 33–76
[2019-02-24] MEDS: IPRATROPIUM BROM 0.5 MG/2.5ML INH SOL NEB SCH ×4 (00:04→18:39)
[2019-02-24] MEDS: ALBUTEROL SULF 2.5 MG/0.5ML(0.5%) NEB SOLN NEB SCH ×4 (00:04→18:38)
[2019-02-24] MEDS: LORazepam 0.5 MG TAB PO PRN ×2 (01:22→12:43)
[2019-02-24] MEDS: HYDROmorphone HCL 2 MG/ML VL IV SCH ×9 (02:25→22:12)
--- NOTE | 2019-02-24 02:30 | NUR ---
after speaking with Respiratory therapist, BRITTANI Trujillo paged and updated on pt condition, at which point suzanna PETER placed order for upgrade to tele as well as stat abg.
--- NOTE | 2019-02-24 03:09 | NUR ---
g resulted. will call and update BRITTANI Trujillo on result.
--- NOTE | 2019-02-24 03:57 | NUR ---
called report to ELIN Partida.
--- NOTE | 2019-02-24 04:16 | NUR ---
left chest tube drainage. level upon transfer to BRIE 195ml.
--- NOTE | 2019-02-24 05:06 | NUR ---
CONSULT FOR PLACED AT 0500. S/W MANUEL. REQ: DR. FIGUEROA DX: TESTICULAR CX
[2019-02-24] MEDS: ONDANSETRON HCL 4 MG/2 ML VIAL IV PRN ×2 (05:10→11:02)
--- NOTE | 2019-02-24 06:00 | NUR ---
RESPIRATORY THERAPIST DC BIPAP ORDERED ON 02/23 CONTRAINDICATION TO A PNEUMOTHORAX
--- NOTE | 2019-02-24 06:40 | NUR ---
RT PAGED DT PATIENT DESAT TO 84%, PATIENT SLEEPING IN NO APPARENT DISTRESS.
--- NOTE | 2019-02-24 06:43 | NUR ---
RT AT BEDSIDE FOR BREATHING TREATMENT.
[2019-02-24] MEDS: ALPRAZolam 0.5 MG TAB PO SCH ×3 (06:49→21:38)
--- NOTE | 2019-02-24 07:00 | NUR ---
Opening Shift Note: Report received from ELIN Watt. Assumed care of patient, awake, alert and lethargic. Patient on routine dilaudid for pain. Instructed on POC and to call for assist PRN, will continue to monitor for changes Q1hr and PRN.
--- NOTE | 2019-02-24 07:42 | NUR ---
CARE ENDORSED TO DAY SHIFT RN PATIENT ON HIGH FLOW 50L, 70% FIO2, POX 97%.PATIENT IS RESTING IN BED WITH EYES CLOSED NO S/S OF DISTRESS, BREATHING UNLABORED AT THIS TIME.
[2019-02-24] MEDS: Ensure Enlive Chocolate 8oz Bottle PO SCH ×3 (08:00→18:00)
[2019-02-24] MEDS: PANTOPRAZOLE 40 MG TAB PO SCH (09:46)
[2019-02-24] MEDS: MORPHINE SULF 30 mg ER tab PO SCH ×2 (09:47→21:43)
[2019-02-24] MEDS: CALCIUM CARB 500 MG CHEW TAB PO SCH ×2 (09:47→21:44)
[2019-02-24] MEDS: DOCUSATE SOD 100 MG CAP PO PRN (09:47)
--- NOTE | 2019-02-24 11:12 | NUR ---
ASSUMED CARE FOR LUNCH COVERAGE: PT RESTING IN BED, NO DISTRESS NOTED. FAMILY AT BEDSIDE. WILL CONTINUE TO MONITOR.
--- NOTE | 2019-02-24 11:46 | NUR ---
Patient seen by Dr. Molina- new am orders. Changed dilaudid to Q2hrs 2mg for pain med not lasting.
--- NOTE | 2019-02-24 11:47 | NUR ---
OPTIFOAM PLACED UNDER PLASTIC HIGH FLOW FOR SKIN PROTECTION
--- NOTE | 2019-02-24 11:48 | NUR ---
CARE RETURNED TO PRIMARY RN
--- NOTE | 2019-02-24 12:49 | NUR ---
Dr. Casas at bedside- spoke with family regarding poor prognosis.
[2019-02-24 13:30] LABS: Basophils # (auto) 0.1 uL; Basophils % (auto) 0.5 % (0.0-2.0); Eosinophils % (auto) 7.6 % (0.0-7.0); Hematocrit 32.1 % (41.0-53.0); Hemoglobin 10.4 g/dL (13.5-17.5); Lymphocytes # (auto) 1.7 uL; Lymphocytes % (auto) 13.2 % (10.0-50.0); Mean Corpuscular Hgb Conc. 32.4 g/dL (32.0-36.0); Mean Corpuscular Volume 86.5 fL (80.0-100.0); Monocytes # (auto) 0.7 uL; Monocytes % (auto) 5.1 % (0.0-12.0); Neutrophils # (auto) 9.5 uL; Neutrophils % (auto) 73.6 % (37.0-80.0); Platelet Count (auto) 317 10^3/uL (140-450); Red Blood Cells 3.71 10^6/uL (4.5-5.90); Red Cell Distribution Width 16.1 % (11.8-14.3); White Blood Cell 12.9 10^3/uL (4.4-10.8)
[2019-02-24 13:47] LABS: Albumin 2.7 g/dL (3.4-5.0); Calcium 8.6 mg/dL (8.5-10.1); Potassium 4.4 mmol/L (3.5-5.1)
[2019-02-24 13:51] LABS: Bilirubin, Total 0.5 mg/dL (0.2-1.0); Total Protein 6.6 g/dL (6.4-8.2)
[2019-02-24] MEDS ORDERED: HYDROmorphone HCL 2 MG/ML VL ONE (15:45)
[2019-02-24] MEDS: guaiFENesin-CODEINE LIQUID 5 ML UD PO SCH (16:59)
--- NOTE | 2019-02-24 18:41 | NUR ---
Family visited patient all day at bedside.
--- NOTE | 2019-02-24 19:31 | NUR ---
SBAR report given to ELIN Lund.
--- NOTE | 2019-02-24 19:31 | NUR ---
Opening Shift Note Assumed care of patient, awake and alert. Breathing tachypneic and labored, on O2 High flow 30LPM 70%, dry cough. Chest tubes x3 at the left chest connected to atrium and wall suction 20 cmH2O, no subcutaneous emphysema observed. The lowest chest tube has serous drainage, fluctuated, no air leak observed. C/O at chest tube sites 08/06, will administer pain medicine as order. Port-A-Cath at right upper chest, saline lock, flushed well, no blood returned. Bd in low position, call light within reach, all alarms are audible, fall and safety precaution in place. Instructed on POC and to call for assist PRN, will continue to monitor for changes Q1hr and PRN. Family at bedside. Will applied SCD to both legs due to bedrest because SOB and High flow/desaturation.
[2019-02-24] MEDS: ACETAMINOPHEN 500 MG TAB PO PRN (21:37)
--- NOTE | 2019-02-24 21:40 | NUR ---
Condition update Pt c/o pain 08/06 at the chest tubes area. Pt due to Morphine schedule and Xanax, will administer as order. Fever of 100.9, cooling measure applied, will administer Tylenol as order. Assisted Pt to turn, wiped his back and bottom, skin intact, no redness at sacrum, z-guard applied and Optifoam covered to prevent skin breakdown, partial linens changed. Pt-repositioned for comfort. SCD applied to both legs after explanation, Pt verbalized understanding. Continue care.
--- NOTE | 2019-02-24 23:30 | NUR ---
Condition update/ desaturation Pt woke up and coughing up, O2sat decreased to 40's%, increased High flow O2 from 60%30LPM to 70% 30LPM. [id number] increased slowly to 90's%, will continue to observed. Tachypneic while resting and waking up. Pt also c/o pain, will administer pain medicine as order. Continue care.
[2019-02-25] VITALS (15 sets, daily range): BP systolic 91–133; BP diastolic 42–67
[2019-02-25] MEDS: IPRATROPIUM BROM 0.5 MG/2.5ML INH SOL NEB SCH ×4 (00:10→19:22)
[2019-02-25] MEDS: ALBUTEROL SULF 2.5 MG/0.5ML(0.5%) NEB SOLN NEB SCH ×4 (00:11→19:22)
[2019-02-25] MEDS: HYDROmorphone HCL 2 MG/ML VL IV SCH ×5 (00:15→08:01)
--- NOTE | 2019-02-25 02:15 | NUR ---
VOID/PAIN: Pt awake to void; 400ml urine output noted. Pt moaning, c/o pain at level 10/10. Pt requesting medication for pain. Pt medicated w/ Dilaudid 2mg IVP as per order. To continue to monitor pt.
--- NOTE | 2019-02-25 04:30 | NUR ---
Condition update Pt woke up, ask to go to the restroom, explained to the Pt and family why Pt has to be bedrest for now. Pt gets severe SOB easily and severe pain while moving with desaturation to about 50's%. Pt and family acknowledged. RR at 30's while awake. RR at 20's without SOB while sleeping. Continue care and monitoring.
[2019-02-25 05:53] LABS: Basophils # (auto) 0.1 uL; Basophils % (auto) 0.5 % (0.0-2.0); Eosinophils # (auto) 0.9 uL; Eosinophils % (auto) 7.2 % (0.0-7.0); Hematocrit 31.9 % (41.0-53.0); Hemoglobin 10.2 g/dL (13.5-17.5); Lymphocytes # (auto) 2.2 uL; Lymphocytes % (auto) 17.9 % (10.0-50.0); Mean Corpuscular Hemoglobin 27.7 pg (28.0-32.0); Mean Corpuscular Hgb Conc. 31.9 g/dL (32.0-36.0); Mean Corpuscular Volume 86.6 fL (80.0-100.0); Monocytes # (auto) 0.9 uL; Monocytes % (auto) 7.5 % (0.0-12.0); Neutrophils # (auto) 8.1 uL; Neutrophils % (auto) 66.9 % (37.0-80.0); Platelet Count (auto) 306 10^3/uL (140-450); Red Blood Cells 3.68 10^6/uL (4.5-5.90); Red Cell Distribution Width 15.8 % (11.8-14.3); White Blood Cell 12.1 10^3/uL (4.4-10.8)
[2019-02-25] MEDS: ALPRAZolam 0.5 MG TAB PO SCH ×3 (06:03→22:58)
[2019-02-25 06:18] LABS: BUN/Creatinine Ratio 19.4; Calcium 8.9 mg/dL (8.5-10.1); Potassium 4.5 mmol/L (3.5-5.1)
[2019-02-25] MEDS: guaiFENesin-CODEINE LIQUID 5 ML UD PO SCH ×3 (06:26→17:00)
--- NOTE | 2019-02-25 07:30 | NUR ---
Respiratory note: Changed settings to high flow nasal cannula. Pt is on flow 40lpm, 60% fio2. spo2 97%.
--- NOTE | 2019-02-25 07:31 | NUR ---
water jerry changed at this time and temp set to 36.0 celcius.
[2019-02-25] MEDS: ACETAMINOPHEN 500 MG TAB PO PRN ×2 (08:01→20:32)
[2019-02-25] MEDS: Ensure Enlive Chocolate 8oz Bottle PO SCH ×3 (08:02→18:28)
[2019-02-25] MEDS: MORPHINE SULF 30 mg ER tab PO SCH (10:03)
[2019-02-25] MEDS: PANTOPRAZOLE 40 MG TAB PO SCH (10:03)
[2019-02-25] MEDS: CALCIUM CARB 500 MG CHEW TAB PO SCH ×2 (10:03→22:58)
--- NOTE | 2019-02-25 10:27 | NUR ---
DR. MURPHY HERE TO SEE PATIENT. SEE MD NOTES AND EMR FOR NEW ORDERS.
[2019-02-25] MEDS ORDERED: NALOXONE HCL 0.4 MG/ML VIAL IV PRN (10:30)
[2019-02-25] MEDS: IPRATROPIUM BROM 0.5 MG/2.5ML INH SOL NEB PRN (10:38)
[2019-02-25] MEDS ORDERED: fentaNYL 25MCG/HR 25 MCG/HR PAT TD SCH (10:45)
--- NOTE | 2019-02-25 11:21 | NUR ---
HOME 02: SPOKE WITH [employer] FOR HOME 02. PER [employer], PT WAS GIVEN 6 E TANKS (SMALL PORTABLES) AND ANOTHER 02 TANK FOR HOME WITH DEVICE TO FILL UP OXYGEN DEVICE OVERNIGHT. [employer] STATED FAMILY CAN BRING THE 6 E TANKS IN AND THEY WILL GIVE THEM FULL ONES.
--- NOTE | 2019-02-25 12:42 | NUR ---
SS CONSULT FOR TRANSFER FAXED TO [facility]
[2019-02-25] MEDS: SALINE 0.65 % NASAL SPRAY 45ML BOTTLE EACHNOSTRI SCH ×3 (13:11→22:00)
[2019-02-25] MEDS: HYDROmorphone HCL 2 MG/ML VL IV PRN ×5 (13:13→22:50)
--- NOTE | 2019-02-25 14:00 | NUR ---
TRANSFER: CYNDIE FROM [facility] CALLED. SHE IS WORKING ON GETTING
--- NOTE | 2019-02-25 19:00 | NUR ---
Opening shift note Assumed care, awake and oriented, CTT, heimlick valve in place, port a cath patent and intact, still with c/o pain. Bed in lowest position with side rails up, call light within reach. at bedside. Encouraged to call if he needs something.
[2019-02-26] VITALS (11 sets, daily range): BP systolic 69–137; BP diastolic 33–100
[2019-02-26] MEDS: IPRATROPIUM BROM 0.5 MG/2.5ML INH SOL NEB SCH ×4 (00:25→18:20)
[2019-02-26] MEDS: ALBUTEROL SULF 2.5 MG/0.5ML(0.5%) NEB SOLN NEB SCH ×4 (00:25→18:20)
[2019-02-26] MEDS: HYDROmorphone HCL 2 MG/ML VL IV PRN ×10 (01:40→22:37)
[2019-02-26] MEDS: ONDANSETRON HCL 4 MG/2 ML VIAL IV PRN ×2 (01:40→20:32)
--- NOTE | 2019-02-26 03:00 | NUR ---
Desaturation 30's-76%, HR 107, BP 66/33, RR 40's, increased high flow to 60L, 80% FiO2, RT at bedside. Maintained on high back rest, encouraged deep breathing exercises.
--- NOTE | 2019-02-26 03:16 | NUR ---
High flow back on 40L, FiO2 80%, Sat 99%, HR 90, BP 128/68.
[2019-02-26] MEDS: SALINE 0.65 % NASAL SPRAY 45ML BOTTLE EACHNOSTRI SCH ×4 (06:00→21:40)
[2019-02-26] MEDS: ALPRAZolam 0.5 MG TAB PO SCH ×4 (06:50→21:40)
[2019-02-26] MEDS: guaiFENesin-CODEINE LIQUID 5 ML UD PO SCH ×4 (07:00→18:22)
[2019-02-26] MEDS: ACETAMINOPHEN 500 MG TAB PO PRN (07:39)
--- NOTE | 2019-02-26 07:39 | NUR ---
PATIENT TEMPERATURE 99.4, ORAL TYLENOL GIVEN.
[2019-02-26] MEDS: Ensure Enlive Chocolate 8oz Bottle PO SCH ×3 (07:40→18:10)
[2019-02-26] MEDS: CALCIUM CARB 500 MG CHEW TAB PO SCH ×2 (10:48→21:40)
[2019-02-26] MEDS: PANTOPRAZOLE 40 MG TAB PO SCH (10:48)
--- NOTE | 2019-02-26 11:14 | NUR ---
CALLED [facility] EVEN THOUGH TRANSFER ORDER CANCELLED TO F/U [employer] CREWMAN LEFT ON ANSWERING MACHINE. [facility] RADHA SANTANA HAS NO ACCEPTING MD AND NO BEDS AT PRESENT.
--- NOTE | 2019-02-26 11:25 | NUR ---
DR. CHRISTIANO ZEPEDA MD HERE TO REMOVE HEIMLICH VALVE TO PATIENTS LEFT CHEST. PATIENT TOLERATED PROCEDURE WELL, NEW ORDER FROM DR. ALVARADO TO GIVE MORPHINE 2 MG 1 TIME DOSE FOR BREAKTHROUGH PAIN. ORDER RECEIVED AND CARRIED OUT.
[2019-02-26] MEDS ORDERED: MORPHINE SULF INJ 2 MG/ML SYRINGE 1ML IV ONE (11:30)
--- NOTE | 2019-02-26 12:20 | NUR ---
Respiratory note: PLACED PT ON OXYMIZER AT 12L/M. PT TOLERATING WELL. PT STATED HE WANTED TO TAKE A BREAK FROM THE HFNC. HR 91, RR 20, 95%. RN IS AWARE OF CHANGE.
[2019-02-26] MEDS: ALBUTEROL SULF 2.5 MG/0.5ML(0.5%) NEB SOLN NEB PRN ×2 (15:22→21:39)
[2019-02-26] MEDS: IPRATROPIUM BROM 0.5 MG/2.5ML INH SOL NEB PRN ×2 (15:22→21:39)
[2019-02-26] MEDS: CARISOPRODOL 350 MG TAB PO PRN (19:21)
--- NOTE | 2019-02-26 20:00 | NUR ---
Opening Shift Note Assumed care of patient, awake and alert, patient's at bedside. CT to left lateral chest draining serous sanguineous output. Instructed on POC and to call for assist PRN, will continue to monitor.
[2019-02-26] MEDS: DOCUSATE SOD 100 MG CAP PO PRN (20:32)
[2019-02-27] VITALS (10 sets, daily range): BP systolic 92–128; BP diastolic 33–63
--- NOTE | 2019-02-27 00:14 | NUR ---
Respiratory note: PT IS SLEEPING COMFORTABLY WITH NO S/S OF RESPIRATORY DISTRESS. WILL COME BACK FOR BREATHING TX DUE TO PT WANTING TO BE ABLE TO GET SOME REST. ELIN MOJICA. WILL CONTINUE TO MONITOR.
[2019-02-27] MEDS: IPRATROPIUM BROM 0.5 MG/2.5ML INH SOL NEB SCH ×4 (02:00→18:46)
[2019-02-27] MEDS: ALBUTEROL SULF 2.5 MG/0.5ML(0.5%) NEB SOLN NEB SCH ×4 (02:00→18:46)
--- NOTE | 2019-02-27 02:10 | NUR ---
PAIN: Pt moaning loudly, grimacing. Pt c/o pain at level 10/10. Pt requesting medication for pain. Pt medicated w/ Dilaudid 2mg IVP as per order. To continue to monitor pt.
[2019-02-27] MEDS: HYDROmorphone HCL 2 MG/ML VL IV PRN ×6 (02:12→17:54)
--- NOTE | 2019-02-27 02:30 | NUR ---
ANXIETY: Pt extremely anxious, unable to calm down. Pt asking for Xanax. Informed pt that Xanax not due at this time. Medicated pt w/ Ativan 0.5mg PO as per order. To continue to monitor pt.
[2019-02-27] MEDS: LORazepam 0.5 MG TAB PO PRN (02:32)
--- NOTE | 2019-02-27 04:37 | NUR ---
ROUNDS PATIENT SLEEPING AT THIS TIME WITH NO S/S OF SOB, POX 100%. CONTINUES TO BE AT BEDSIDE.
[2019-02-27] MEDS: ONDANSETRON HCL 4 MG/2 ML VIAL IV PRN ×2 (05:16→20:32)
--- NOTE | 2019-02-27 05:18 | NUR ---
PATIENT REFUSED BED BATH AND LINEN CHANGE AT THIS TIME
[2019-02-27] MEDS: ALPRAZolam 0.5 MG TAB PO SCH ×3 (05:26→19:04)
[2019-02-27] MEDS: SALINE 0.65 % NASAL SPRAY 45ML BOTTLE EACHNOSTRI SCH ×3 (05:26→18:00)
[2019-02-27] MEDS: guaiFENesin-CODEINE LIQUID 5 ML UD PO SCH ×3 (06:29→17:10)
--- NOTE | 2019-02-27 06:29 | NUR ---
ATTEMPT TO GIVE PATIENT BED BATH PER PATIENT REQUEST. PARTIAL BED BATH PROVIDED DT PATIENT C/O PAIN AND PATIENT DESATURATING HIGH 70'S. PATIENT DID NOT TOLERATE BATH WELL. INSTRUCTED PT TO TAKE DEEP BREATHS AND POX 95%.
--- NOTE | 2019-02-27 07:22 | NUR ---
CARE ENDORSED TO DAY SHIFT RN PATIENT RESTING WITH NO S/S OF DISTRESS ON 85%FIO2 AND 40L, POX 100% CALL LIGHT WITHIN EASY REACH
--- NOTE | 2019-02-27 08:00 | NUR ---
OPENING NOTE Received patient in bed resting with eyes closed, easily arousable to verbal stimuli, alert and oriented X4, able to follow commands and speech appropriate. Sinus rhythm in the 80's on bedside monitor, pulses palpable on upper/lower extremities with no edema observed. High flow nasal cannula FIO2 85% and 40 Liters sating 100% at this time. Port a cath to the right upper chest hep locked. Chest tube to the left lateral chest with some crepitus around site (Will notify MD), draining serous sanguineous fluid. Patient expressing pain to the chest tube insertion site will medicate as MD orders. at bedside. Will continue to monitor patient.
[2019-02-27] MEDS: Ensure Enlive Chocolate 8oz Bottle PO SCH ×3 (08:28→18:00)
[2019-02-27] MEDS: CALCIUM CARB 500 MG CHEW TAB PO SCH (09:36)
[2019-02-27] MEDS: PANTOPRAZOLE 40 MG TAB PO SCH (09:36)
[2019-02-27] MEDS ORDERED: fentaNYL 50MCG/HR 50 MCG/HR PAT TD SCH (09:45)
--- NOTE | 2019-02-27 09:45 | NUR ---
RESPIRATORY RT paged to room 264. Patient de-sating to the 60's on high flow after patient sitting up in bed. Per patients RT usually increases High flow rate.
--- NOTE | 2019-02-27 09:50 | NUR ---
RESPIRATORY RT at bedside and increased FIO2 to 100% and 45 Liters patient now sating in the mid 's.
[2019-02-27] MEDS: CARISOPRODOL 350 MG TAB PO PRN (10:02)
--- NOTE | 2019-02-27 10:05 | NUR ---
MD Dr. Tadeo at bedside updated on patient condition and aware of crepitus around chest tube site. New orders received, MD to input into system. MD spoke to patient and patients family regarding plan of care and pain control. MD answered questions and concerns.
--- NOTE | 2019-02-27 10:20 | NUR ---
RESPIRATORY RT informed this RN that she has decreased patients FIO2 to 80% and 40 Liters patient sating continues in the mid s.
[2019-02-27] MEDS ORDERED: LORazepam 0.5 MG TAB PO PRN (10:30)
--- NOTE | 2019-02-27 12:30 | NUR ---
XANAX Pulled out 2 tablets out of pyxis when this RN should of pulled out 4 tablets; Discrepancy occurred. Called pharmacy and spoke to Cat Pharmacist and states to return 2 tablets in return bin and she will send the dose with food safety technician.
--- NOTE | 2019-02-27 13:30 | NUR ---
[facility] Sandra RN from [facility] at bedside with patient and patient family and information being given regarding hospice. Hospice evaluation. Patient and patient agree to go with hospice. MD spoke to hospice nurse regarding chest tube.
[2019-02-27] MEDS: KETOROLAC TROMETH 30 MG/ML 1ML VIAL IV PRN ×2 (14:12→20:32)
--- NOTE | 2019-02-27 14:58 | NUR ---
Nutrition Follow-up Notes Wt.: 85.0 kg as of yesterday. Pt's on high flow nasal cannula, asleep, no signs of distress noted earlier, currently on Regular diet with Ensure Enlive 1 carton TID, has inadequate PO intake aeb <25% ave. consumed meals (x6) in last 2.5 days. Est. Needs BW [id number] kcal (25-30 kcal/kgBW), 82-98 gms pro (1.0-1.2 gms/kgBW). Will continue to monitor pertinent labs and reassess nutrient need prn Labs: No new labs since 02/25/19 BUN 35 H, Cr 0.67 L, Alb 2.7 L Skin: Eugenio scale 16, mod risk, skin intact per audio visual design engineer. GI: Pt had 1 BM this morning per audio visual design engineer. PES: Increased nutrient needs r/t current/chronic medical condition aeb Testicular cancer with lung metastasis, mod hypoalbuminemia, on ONS with <75% consumed meals. Altered nutrition related lab values r/t current/chronic medical condition aeb mild hypoalb Will continue to monitor PO intake, skin status, pertinent labs and weight trend. F/u in 3 to 5 days. Rec.: 1.) Continue close supervision during meals. 2.) If Albumin level continues trending down, consider Prostat 1 pkt BID. 3.) If pt's s PO intake remains inadequate (<50%), consider alternate nutrition support if medically appropriate. 4.) Refer pt to CDE/RD for further nutrition education and weight monitoring upon discharge. 5.) Continue current plan of care.
[2019-02-27] MEDS: ALBUTEROL SULF 2.5 MG/0.5ML(0.5%) NEB SOLN NEB PRN (15:04)
[2019-02-27] MEDS: IPRATROPIUM BROM 0.5 MG/2.5ML INH SOL NEB PRN (15:04)
--- NOTE | 2019-02-27 15:21 | NUR ---
CALLED [facility] AND ASKED FOR AUTH FOR TRANSPORT. THEY WANTED ORDER FAXED. I FAXED ORDER ALONG WITH D/C SUMMARY TO [facility] AT [phone] AND PH # IS [phone]
--- NOTE | 2019-02-27 15:28 | NUR ---
ANAHI CERVANTES FROM CALLED AND ASKED IF WHAT ARRANGEMENTS ABOUT TRANSPORT, INFORMED HER OF [facility] REVIEWING ORDER. ANAHI'S DIRECT LINE IS [phone]
--- NOTE | 2019-02-27 15:56 | NUR ---
PER CODIE CHAN, [facility] IS ARRANGING TRANSPORT WITH [facility] PH [phone]. PHOTOGRAPHY TEACHER APPROX 2000HRS.
--- NOTE | 2019-02-27 17:30 | NUR ---
SEIZURE Per patients step mother patient had a seizure about 10 seconds. Not witnessed by this RN. Patient alert and oriented X4 no neuro changes observed. Will continue to monitor patient closely.
--- NOTE | 2019-02-27 20:00 | NUR ---
PATIENT'S HANDY CONCERNED ABOUT PATIENT LEAVING HOME WITH NRB MASK. EDUCATED ON HOSPICE AND PAGED RT TO SWITCH PATIENT TO NRB MASK TO ASSESS FOR OPTIMAL OXYGENATION.
--- NOTE | 2019-02-27 20:54 | NUR ---
PATIENT DISCHARGED HOME WITH HOSPICE WITH ALL PERSONAL BELONGINGS SENT HOME WITH HANDY AT BEDSIDE. PATIENT PLACED ON NRB MASK ON 15L WITH [facility]. NO S/S OF DISTRESS /SOB UPON DEPARTURE. DISCHARGE INSTRUCTIONS PROVIDED TO WALTER MURRELL AND ALL QUESTIONS AND CONCERNS ADDRESSED AT BEDSIDE.
--- NOTE | 2019-02-27 20:56 | NUR ---
OPENING SHIFT PATIENT AND AWARE OF PENDING TRANSPORTATION HOME WITH HOSPICE. PATIENT ON 65%FIO2 ON 40L WITH NO S/S OF DISTRESS OR SOB. CT TO LEFT DRAINING SEROUS SANGUINEOUS OUTPUT. COMPLETE PHYSICAL ASSESSMENT DONE: SEE INTERVENTIONS. Addendum: 02/27/19 at 2056 by Helga De RN CORRECT TIME 1944
--- NOTE | 2019-02-27 20:59 | NUR ---
PATIENT SWITCHED ON NRB MASK, ROBIN SHANKAR AT BEDSIDE EDUCATING PATIENT'S . PER HANDY PATIENT OXYGEN SATURATION REMAINED 100% ON NRB MASK. Addendum: 02/27/19 at 2100 by Helga De RN CORRECT TIME 2030
[2019-02-28] MEDS ORDERED: AMIODARONE HCL 200 MG TAB PO SCH (10:00)
== END 2019-02-27 21:07 | disposition hospice, home (50) | DRG 199 ==
LOC: EDBD 10:08 → ER 10:08 → OVERFLOW 11:34 → EAST 14:49 → TELE-EAST 02-24 02:47 → ICU CENTRL 02-24 03:16 → DOU IN ICU 02-24 05:05
PROVIDERS: ADMIT Nurse Practitioner Acute Care; ATTEND Internal Medicine
PROC: 0W9B30Z Drainage of Left Pleural Cavity with Drainage Device, Percutaneous Approach (ICD-10-PCS; principal; 2019-02-23)
DX: J93.0 Spontaneous tension pneumothorax (principal); J96.21 Acute and chronic respiratory failure with hypoxia; E44.0 Moderate protein-calorie malnutrition; C78.00 Secondary malignant neoplasm of unspecified lung; T79.7XXA Traumatic subcutaneous emphysema, initial encounter; Z68.23 Body mass index [BMI] 23.0-23.9, adult; C62.90 Malignant neoplasm of unspecified testis, unspecified whether descended or undescended; D64.9 Anemia, unspecified; I51.7 Cardiomegaly; Z66 Do not resuscitate; Z79.899 Other long term (current) drug therapy
CPT/HCPCS: 32551; 36415; 36600; 71045; 71046; 71250; 80048; 80053; 81001; 82805; 84484; 85025; 85610; 85730; 87081; 93005; 94640; 96374; 96375; 96376; 99291; A6257; G0378; J1885; J2001; J2405

== ENCOUNTER 2019-03-09 00:45 | Inpatient (IN) | payer BC ==
[2019-03-09] VITALS (62 sets, daily range): BP systolic 88–151; BP diastolic 36–106
[~2019-03-09] VITALS: Ht 185.4 cm; Wt 82.6 kg
[~2019-03-09 00:45] MED LIST changes: -ALPR0.5T7 PO; -METH4TAB7 PO; +MORP30TA PO; -MORP60TA25 PO; -NAP500T PO; -PRO10T PO
[2019-03-09] MEDS ORDERED: LORazepam 2MG/ML-1ML VIAL IV ONE ×2 (04:15→06:00)
[2019-03-09] MEDS ORDERED: ETOMIDATE (2MG/ML) 20ML VIAL IV ONE ×5 (04:30→07:00)
[2019-03-09] MEDS ORDERED: LIDOCAINE 2% (LOCAL ANESTH.) PF 5ml SDV ONE ×2 (05:26→14:43)
[2019-03-09] MEDS ORDERED: LIDOCAINE 2%HCL (LOCAL ANESTH.) INJ 10ml MDV IJ ONE ×2 (06:00→15:00)
[2019-03-09] MEDS ORDERED: SUCCINYLCHOLINE CHLORIDE 20 MG/ML 10ML VIAL IV ONE ×3 (06:36→07:00)
[2019-03-09] MEDS ORDERED: MIDAZOLAM DRIP 50 mg/50mL 50 ML IV ONE (06:40)
[2019-03-09] MEDS: MIDAZOLAM DRIP 50 mg/50mL 50 ML IV SCH ×3 (06:43→17:30)
[2019-03-09] MEDS: SODIUM CHLORIDE 0.9% 1,000 ML IV SCH ×3 (06:45→17:00)
[2019-03-09] MEDS ORDERED: IPRATROPIUM BROM 0.5 MG/2.5ML INH SOL NEB ONE (07:00)
[2019-03-09] MEDS ORDERED: DILTIAZEM 125mg/125ml BAG KIT 125 ML IV ONE (07:00)
[2019-03-09] MEDS ORDERED: ALBUTEROL SULF 2.5 MG/0.5ML(0.5%) NEB SOLN NEB ONE (07:00)
[2019-03-09] MEDS: PROPOFOL 100 ML IV SCH ×2 (07:10→14:45)
[2019-03-09] MEDS ORDERED: PROPOFOL 100 ML IV ONE (07:10)
[2019-03-09] MEDS ORDERED: ONDANSETRON HCL 4 MG/2 ML VIAL IV PRN (07:45)
[2019-03-09] MEDS ORDERED: ACETAMINOPHEN 500 MG TAB PO PRN (07:45)
[2019-03-09 08:10] LABS: Basophils # (auto) 0.1 uL; Eosinophils # (auto) 0.1 uL; Hemoglobin 9.1 g/dL (13.5-17.5); Lymphocytes # (auto) 1.7 uL; Neutrophils # (auto) 18.1 uL; Neutrophils % (auto) 85.2 % (37.0-80.0); White Blood Cell 21.3 10^3/uL (4.4-10.8)
[2019-03-09 08:12] LABS: Basophils % (auto) 0.5 % (0.0-2.0); Eosinophils % (auto) 0.6 % (0.0-7.0); Hematocrit 28.3 % (41.0-53.0); Lymphocytes % (auto) 7.8 % (10.0-50.0); Mean Corpuscular Hemoglobin 26.4 pg (28.0-32.0); Mean Corpuscular Hgb Conc. 31.9 g/dL (32.0-36.0); Mean Corpuscular Volume 82.7 fL (80.0-100.0); Monocytes # (auto) 1.3 uL; Monocytes % (auto) 5.9 % (0.0-12.0); Nucleated Red Blood Cells % 0.1 %; Platelet Count (auto) 398 10^3/uL (140-450); Red Blood Cells 3.43 10^6/uL (4.5-5.90); Red Cell Distribution Width 17.5 % (11.8-14.3)
[2019-03-09 08:22] LABS: BUN/Creatinine Ratio 26.3; Calcium 9.2 mg/dL (8.5-10.1); Potassium 4.7 mmol/L (3.5-5.1)
[2019-03-09] MEDS: PANTOPRAZOLE 40 MG/10 ML VIAL IV SCH (10:00)
--- NOTE | 2019-03-09 10:00 | NUR ---
Admit to ICU from ER on vent SOLPINA admitted to ICU via gurney on business services officer, intubated and being bagged by Respiratory Therapist. Patient transferred to bed, connected to mechanical ventilator by therapist, LYSSA at bedside. Patient connected to ICU monitoring, weighed by bedscale, oriented to Cassandra Wooten, primary RN, unit, ventilator and sedation. VSS and documented. Physical assessment performed and documented. Chest tube drainage was clamped when patient arrived to ICU - when tubing was unclamped this nurse and charge nurse Stefan noted moderate/continuous air bubbles in water seal. Dressing to left chest tube insertion site removed and both RN's can hear air leak at insertion site - area was redressed and re-enforced and stat CXR ordered. Will notify MD of findings. Comfort measures provided.
--- NOTE | 2019-03-09 10:04 | NUR ---
Respiratory note: PATIENT TRANSPORTED FROM ER TO ICU BED 11, BEING BAGGED ON 100% FIO2 VIA AMBU-BAG. HE WAS PLACED BACK ON V15 VENTILATOR ONCE IN ICU 11 WITH ALL PREVIOUS SETTINGS. PEAK FLOW WAS DECREASED TO 40 FOR CONSISTENT HIGH PEAK PRESSURES, PIP DECREASED FROM 60 TO LOW 40'S POST CHANGE. SPO2 96%, LUNG SOUNDS DIMINISHED WITH CRACKLES T/O. SMALL AMOUNT OF ANG RED BLOOD WHEN SUCTIONED. PATIENT REMAINS SEDATED ON VERSED AND PROPFOL DRIPS AND CONTINUES TO BE SLIGHTLY RESPONSIVE TO STIMULI. HE IS RESTING COMFORTABLY AND TOLERATING VENT WELL, NO CHANGES MADE. VENT PLUGGED INTO RED OUTLET AND ALL ALARMS ARE SET AND AUDIBLE. WILL CONTINUE TO ASSESS PATIENT WELL VENTILATOR FUNCTION.
--- NOTE | 2019-03-09 10:20 | NUR ---
BELONGINGS/PAIN PUMP PATIENT'S SPOUSE HANDY WAS ASKED TO TAKE THE PATIENT'S PORTABLE PAIN PUMP HOME AT THIS TIME.
--- NOTE | 2019-03-09 10:31 | NUR ---
SPOKE WITH DR STANLEY/TODD HOSPITALIST DR STANLEY NOTIFY OF CHEST TUBE AIR LEAK AND PNEUMO PER CXR AND DECREASE BLOOD PRESSURE AND REQUEST FOR MEDICATION CHANGE. DR STANLEY NOTIFIED THIS NURSE THAT HE IS NO LONGER FOLLOWING PATIENT AND ORDERED HOSPITALIST TO BE PAGED. DR STANLEY ALSO REQUESTED PULMONOLOGY TO BE RECONSULTED. FAMILY AT BEDSIDE. PAGED HOSPITALIST, AWAITING RETURN CALL. HOPPER ATTENDANT WILL RE CONSULT PULMONOLOGY.
--- NOTE | 2019-03-09 10:50 | NUR ---
DR ELIZONDO AT BEDSIDE UPDATED ON ASSIGNMENT OF PATIENT AND STATUS OF PNEUMO. DR ELIZONDO DISCUSSING CASE WITH HOSPITALIST DR KUMAR. DR ELIZONDO ORDERED NURSE TO CALL DR STANLEY AND VERIFY WHY HE IS NOT FOLLOWING PATIENT. DR STANLEY RETURNED CALL AND STATED HE DID NOT ADMIT PATIENT AND DR ELIZONDO IS CONSULTED FOR PULMONOLOGY. DR ELIZONDO/DR KUMAR AWARE. FAMILY AT BEDSIDE.
--- NOTE | 2019-03-09 11:06 | NUR ---
SURGICAL CONSULT CALLED DR ELIZONDO REVIEWED CXR AND ORDERED SURGICAL CONSULT. CONSULT CALLED TO Te DANIEL, MESSAGE LEFT ON ANSWERING MACHINE.
--- NOTE | 2019-03-09 11:49 | NUR ---
CONTACT ER/HOSPITALIST/PAGED PULMONOLOGY SPOKE WITH ER STAFF REGARDING PRIOR PAGE TO DR MELGAR TO NOTIFY OF NEW DEVELOPED PNEUMOTHORAX, PER ER STAFF, MESSAGE WAS RELAYED TO DR MELGAR, PER STAFF DR MELGAR STATED "HE INSERTED CURRENT CHEST TUBE AND HAD A ROBLES TIME, HE WILL NOT BE ABLE TO SEE PATIENT AGAIN AND RECOMMENDED SURGICAL CONSULT TO BE CALLED". SPOKE WITH DR ELIZONDO, MADE AWARE OF DR MELGAR'S NOTE. DR ELIZONDO VERBALIZED UNDERSTANDING AND ALSO RECOMMENDED DR DANIEL TO BE PAGED ONCE AGAIN. EXTENSIVE MESSAGE LEFT FOR DR Te DANIEL ONCE AGAIN, AWAITING RESPONSE. FAMILY AT BEDSIDE.
--- NOTE | 2019-03-09 12:50 | NUR ---
PAGED DR DANIEL MESSAGE LEFT ON ANSWERING SERVICE, AWAITING RESPONSE. CHARGE NURSE AWARE.
--- NOTE | 2019-03-09 13:20 | NUR ---
WOUND CARE NOTE: Wound care in to see patient per wound care request regarding low Eugenio score and intubation status putting patient to high risk for skin breakdown . Patient is 28 years old male with admitting diagnosis of Acute Resp Failure. Patient has history of testicular cancer that mets to lungs. Patient is resting in ICU bed in Rm. 111. He's intubated, sedated and mechanically ventilated. Patient appears to be in no pain using Dillon Tam Faces Pain Scale. Skin assessment done with the assistance of patient's nurse, ELIN Trujillo. No wound noted other than Lt lateral chest, chest tube insertion site with intact occlusive dressing. Patient's medial sacrum has blanchable mild redness. Ashlee care given, applied Barrier cream and covered sacrum with Opti foam gentle dressing as preventative. Repositioned patient for comfort facing his Rt side, redistributed pressure points with pillows. Patient tolerated well. ELIN Trujillo at bedside. RECOMMENDATION: BID/PRN cleaning and application of Barrier cream sacrum as preventative per MD order, frequent turning and repositioning schedule as condition permits,dietary consult for low Eugenio score, redistribute pressure points with pillows, elevate heels on pillows, continue monitoring by wound care while patient is mechanically ventilated. Addendum: 03/09/19 at 1709 by Cherise Stark RN Amended: Links added.
--- NOTE | 2019-03-09 13:37 | NUR ---
CONTACT ER/PAGED SURGEON PATIENT NOTED INCREASED RESPIRATIONS, ANXIOUS. THIS NURSE CAN HEAR CHEST TUBE AIR LEAK. CONTACT HER, LUIS ANTONIO, ER WILL NOTIFY DR MELGAR OF URGENCY. REPAGED DR DANIEL AND NOTIFIED OF CHANGE IN STATUS. AWAITING RESPONSE FROM BOTH MD'S. VLADISLAV, HOSPICE RN AWARE, CHARGE NURSE AWARE, FAMILY AWARE. WILL NOTIFY DR ELIZONDO.
[2019-03-09] MEDS: fentaNYL Drip 2500mCg/250mlNS 250 ML IV SCH (13:40)
--- NOTE | 2019-03-09 14:08 | NUR ---
PAGED DR ELIZONDO/SPOKE WITH RADIOLOGIST/ONCOLOGY TECHNICIAN PAGED DR ELIZONDO TO NOTIFY OF FINDINGS. CONTACT RADIOLOGIST DR KHAN TO SEE IF HE WOULD BE ABLE TO HELP. DR KAHN REVIEWED CXR AND STATED SURGEON WOULD HAVE TO REINSERT TUBE. ONCOLOGY TECHNICIAN NOTIFIED OF PENDING CHEST TUBE REINSERTION AND PATIENT STATUS. VLADISLAV ONCOLOGY TECHNICIAN STATED SHE WOULD FOLLOW-UP WITH DOCTORS AND CONTACT DR DANIEL. AWAITING RESPONSE.
--- NOTE | 2019-03-09 14:29 | NUR ---
SPOKE WITH DR DANIEL/DR TALIA DANIEL WAS UPDATED VIA PHONE OF PATIENT STATUS AND NEED FOR CHEST TUBE REINSERTION. DR DANIEL NOTIFIED THIS NURSE THAT "I AM NOT AVAILABLE FOR ANOTHER COUPLE OF HOURS AND WILL NOT BE ABLE TO SEE PATIENT NOW. SPOKE WITH DR MELGAR, ER PHYSICIAN. UPDATED ON STATUS AND NEED TO REPLACE CHEST TUBE. DR MELGAR STATED HE WOULD COME IN AND SEE PATIENT. FAMILY AWARE.
--- NOTE | 2019-03-09 14:43 | NUR ---
ER PHYSICIAN AT BEDSIDE/CHEST TUBE INSERTION DR MELGAR INSERTED NEW CHEST TUBE, VSS, PATIENT TOLERATED WELL. CXR REVIEWED BY DR MELGAR AT BEDSIDE AND VERIFIED PLACEMENT. CHEST TUBE SECURED BY DR MELGAR, SITE COVERED WITH STERILE DRESSING. SMALL TO MODERATE AIR BUBBLES NOTED IN WATER SEAL CHAMBER, DR MELGAR AWARE.
[2019-03-09] MEDS ORDERED: LIDOCAINE HCL 2 %PF INJ 10ML AMP IJ ONE (15:00)
--- NOTE | 2019-03-09 15:30 | NUR ---
SEDATION DECREASED PATIENT APPEARS COMFORTABLE, VSS.
--- NOTE | 2019-03-09 15:48 | NUR ---
FAMILY AT BEDSIDE PATIENT SPOUSE UPDATED ON PATIENT STATUS. FAMILY VERBALIZED UNDERSTANDING.
--- NOTE | 2019-03-09 15:50 | NUR ---
CALL RECEIVED FROM PHARMACY REGARDING 2% XYLOCAIN 10 MLS IV PREVIOUSLY ORDERED AND RETURNED TO PHARMACY. DR MELGAR DID NOT USE AFTER ALL.
--- NOTE | 2019-03-09 16:08 | NUR ---
SEDATION INCREASED INCREASED SEDATION - PATIENT APPEARS MORE AWAKE AND ANXIOUS. FAMILY AT BEDSIDE. SAFETY AND COMFORT MEASURES PROVIDED.
--- NOTE | 2019-03-09 16:41 | NUR ---
STATUS CHANGE/PAGED DR ELIZONDO PATIENT'S VS INCREASED/VENTILATOR CHANGES - ALL THREE SEDATIONS MAXED. VERIFIED CODE STATUS WITH SPOUSE HANDY. PATIENT'S SPOUSE VERIFIED THAT PATIENT WAS DNR PRIOR TO ADMISSION AND WOULD LIKE TO PLACE BACK ON DNR STATUS. PAGED HOSPITALIST DR ELIZONDO TO NOTIFY OF PATIENT STATUS CHANGE AND FAMILY WISHES. AWAITING RESPONSE.
--- NOTE | 2019-03-09 16:55 | NUR ---
SECOND PAGE TO HOSPITALIST DR ELIZONDO RE-PAGED TO UPDATE ON STATUS CHANGE. AWAITING RESPONSE.
--- NOTE | 2019-03-09 17:32 | NUR ---
PAGED HOSPITALIST AWAITING RESPONSE.
--- NOTE | 2019-03-09 17:43 | NUR ---
CONTACT HOSPITALIST DR JADEN STANLEY UPDATED ON PATIENT'S STATUS AND FAMILY WISHES TO CHANGE FULL CODE TO DNR. DR STANLEY ALSO NOTIFIED OF NEW CHEST TUBE INSERTED BY DR MELGAR, VS CHANGES AND SEDATION MAXIMUM AND PENDING SURGICAL CONSULT TO SEE DR Te DANIEL. DR STANLEY STATED "IF FAMILY WISHES TO MAKE PATIENT DNR THEN HE WILL COME AND SIGN FORM. AGREED WITH REPEAT CXR. WILL CONTINUE TO MONITOR AND CONFIRM DNR STATUS WITH PATIENT'S SPOUSE AND NOTIFY DR STANLEY. CHARGE NURSE AWARE.
--- NOTE | 2019-03-09 17:53 | NUR ---
UNSTABLE FOR TURNING VS CHANGES; VENT CHANGES. PATIENT UNSTABLE TO TURNING AT THIS TIME. AWAITING FURTHER TREATMENT ORDERS FROM HOSPITALIST.
--- NOTE | 2019-03-09 18:00 | NUR ---
CONTACT DR MIKHAIL ELIZONDO UPDATED ON PATIENT'S STATUS AND PATIENT'S SPOUSE WISHES TO DISCUSS DNR STATUS. DR ELIZONDO STATED HE WOULD COME IN AND SPEAK WITH SPOUSE, FAMILY NOTIFIED.
--- NOTE | 2019-03-09 19:30 | NUR ---
END OF SHIFT REPORT PATIENT CARE ENDORSED TO SURGICAL GARMENT INSPECTOR RN. PENDING DR ELIZONDO TO RETURN AND DISCUSS PLAN OF CARE WITH FAMILY. FAMILY REMAINS AT BEDSIDE.
--- NOTE | 2019-03-09 19:30 | NUR ---
REPORT RECEIVED AND ASSUMED CARE; FAMILY AWAITING TO S/W PHYSICIAN REGARDING POSSIBLE PARALYTICS TO BE STARTED PER REPORT FROM AM RN.
--- NOTE | 2019-03-09 20:20 | NUR ---
S/W Chino PAULSON NP RE: NEEDING ORDERS FOR ANTIBIOTICS, FLUID, LEVOPHED GTT, LABS AND CULTURES, AND CHEST XRAY; ORDERS RECEIVED.
[2019-03-09] MEDS ORDERED: SODIUM CHLORIDE 0.9% 1,000 ML IV SCH (20:45)
[2019-03-09] MEDS ORDERED: VANCOMYCIN PER PHARMACY 0 MG IV SCH (20:45)
[2019-03-09] MEDS ORDERED: NOREPINEPHRINE 8 MG/250ML KIT 250 ML IV ONE (21:08)
[2019-03-09] MEDS: NOREPINEPHRINE 8 MG/250ML KIT 250 ML IV SCH (21:10)
[2019-03-09] MEDS ORDERED: VANCOMYCIN 1GM/250ML 250 ML IV ONE (21:15)
--- NOTE | 2019-03-09 22:26 | NUR ---
TRIAL OF PC SETTINGS ON PT. PIP DECREASED TO 36-38. DOWN FROM 45. PAGE OUT TO HOSPITALIST FOR NEW SETTINGS. POX 100% HR 84 BP 98/40
[2019-03-10] VITALS (95 sets, daily range): BP systolic 90–121; BP diastolic 35–73
[2019-03-10] MEDS ORDERED: ALBUTEROL SULF 2.5 MG/0.5ML(0.5%) NEB SOLN NEB SCH
[2019-03-10] MEDS: PIPERACILLIN-TAZOB 3.375GM 100 ML IV SCH ×4 (01:06→18:17)
[2019-03-10 04:39] LABS: Basophils # (auto) 0 uL; Eosinophils # (auto) 1.2 uL; Hemoglobin 7.9 g/dL (13.5-17.5); Monocytes # (auto) 0.9 uL; Red Cell Distribution Width 17.5 % (11.8-14.3)
[2019-03-10 04:42] LABS: Basophils % (auto) 0.2 % (0.0-2.0); Eosinophils % (auto) 8.6 % (0.0-7.0); Lymphocytes # (auto) 1.5 uL; Lymphocytes % (auto) 11.3 % (10.0-50.0); Mean Corpuscular Hemoglobin 26.4 pg (28.0-32.0); Mean Corpuscular Hgb Conc. 31.6 g/dL (32.0-36.0); Mean Corpuscular Volume 83.4 fL (80.0-100.0); Monocytes % (auto) 6.6 % (0.0-12.0); Neutrophils % (auto) 73.3 % (37.0-80.0); Platelet Count (auto) 318 10^3/uL (140-450); Red Blood Cells 2.99 10^6/uL (4.5-5.90); White Blood Cell 13.7 10^3/uL (4.4-10.8)
[2019-03-10 04:44] LABS: Calcium 8.6 mg/dL (8.5-10.1); Potassium 4.1 mmol/L (3.5-5.1)
[2019-03-10 04:46] LABS: BUN/Creatinine Ratio 25.5
--- NOTE | 2019-03-10 05:45 | NUR ---
PROVIDED FULL LINEN CHANGE AND BED BATH WITH CHLORHEXIDINE WIPES; PT. TOLERATED WELL.
--- NOTE | 2019-03-10 06:00 | NUR ---
WT= 79.18 KG PER BED SCALE.
--- NOTE | 2019-03-10 06:12 | NUR ---
S/W Chino PAULSON NP RE: HGB=7.9 AND NO RX AT THIS POINT; PT. DOES NOT HAVE ANY ACTIVE BLEEDING.
[2019-03-10] MEDS ORDERED: ALBUTEROL SULF 2.5 MG/0.5ML(0.5%) NEB SOLN NEB PRN (07:00)
--- NOTE | 2019-03-10 08:00 | NUR ---
OPENING NOTE Received patient on mechanical ventilator sedated on Fentanyl 200mcg, Diprivan 50mcg and Versed at 15mg. Patient does not open eyes to tactile/verbal stimuli, pupils reactive to light sluggish, hypoactive gag reflex and withdrawals to pain. Sinus rhythm in the 70's on bedside monitor, pulses palpable on upper/lower extremities and no edema observed. OG tube checked and verified via air bolus: clamped. Abdomen soft, non tender, non distended with bowel sounds present and last bowel movement being 03/08/2019 per patient . Chest tube to the left lateral side with air leak, water seal bubbling, no crepitus around site:dressing clean, dry and intact. Casey catheter draining to gravity. Shahbaz cath to the right upper chest with Levophed infusing at 2mcg to keep MAP above 60. Right hand 20g and right wrist 20g with good blood return and flushes easily infusing normal saline at 100ml. Will apply SCD's. Skin intact. Oral care provided. Will continue to monitor patient closely.
[2019-03-10] MEDS: SODIUM CHLORIDE 0.9% 1,000 ML IV SCH ×2 (08:52→23:00)
[2019-03-10] MEDS: PROPOFOL 100 ML IV SCH ×4 (08:53→23:07)
[2019-03-10] MEDS: VANCOMYCIN 1,500 MG in D5W 5% 250 ML IV SCH ×2 (08:53→21:00)
--- NOTE | 2019-03-10 09:45 | NUR ---
MD Dr. Huerta at bedside updated on patient condition and MD spoke to patients family (patients and mother in law), whom is at bedside, regarding plan of care. Questions and concerns answered. No new orders received at this time.
[2019-03-10] MEDS: PANTOPRAZOLE 40 MG/10 ML VIAL IV SCH (10:29)
[2019-03-10] MEDS: MIDAZOLAM DRIP 50 mg/50mL 50 ML IV SCH ×3 (10:30→23:07)
--- NOTE | 2019-03-10 10:30 | NUR ---
MD Dr. Fields at bedside updated on patient condition and spoke to family regarding DNR per family request. MD did not speak to family regarding plan of care and are upset that they did not get more information regarding patient condition. Would like Dr. Beauchamp to take over case tomorrow.
--- NOTE | 2019-03-10 11:20 | NUR ---
NUTRITION CONSULT/ASSESSMENT NOTES Please refer to link notes of nutrition screen form filed under the intervention section of the plan of care for further details. Est. Needs: 3000 kcal to 2350 kcal (25-30 kcal/kgBW), 79 gms to 111 gms pro (1.0-1.4 gms/kgBW d/t CA). Will continue to monitor pertinent labs and reassess nutrient need prn Thank you for this consult. Addendum: 03/10/19 at [address] Amended: Links added.
[2019-03-10] MEDS: fentaNYL Drip 2500mCg/250mlNS 250 ML IV SCH (11:58)
--- NOTE | 2019-03-10 14:40 | NUR ---
RESPIRATORY RT Alyssa at bedside decreased Fio2 to 65% patient tolerating well sating in the mid 90's. Will continue to titrate as tolerated by patient.
--- NOTE | 2019-03-10 16:20 | NUR ---
RESPIRATORY RT Alyssa at bedside decreased FIO2 to 60% patient tolerated well sating in the low 90's, will continue to monitor patient closely.
[2019-03-10] MEDS: NOREPINEPHRINE 8 MG/250ML KIT 250 ML IV SCH (21:00)
[2019-03-11] VITALS (64 sets, daily range): BP systolic 89–132; BP diastolic 39–75
[2019-03-11] MEDS: fentaNYL Drip 2500mCg/250mlNS 250 ML IV SCH (01:58)
[2019-03-11 04:41] LABS: BUN/Creatinine Ratio 8.2; Bilirubin, Total 0.2 mg/dL (0.2-1.0); Calcium 8.4 mg/dL (8.5-10.1); Total Protein 5.8 g/dL (6.4-8.2)
[2019-03-11] MEDS: MIDAZOLAM DRIP 50 mg/50mL 50 ML IV SCH ×3 (04:55→13:37)
[2019-03-11] MEDS: PIPERACILLIN-TAZOB 3.375GM 100 ML IV SCH ×3 (04:56→12:00)
[2019-03-11] MEDS: PROPOFOL 100 ML IV SCH ×3 (06:00→13:39)
[2019-03-11] MEDS: SODIUM CHLORIDE 0.9% 1,000 ML IV SCH (07:26)
--- NOTE | 2019-03-11 08:29 | NUR ---
Resumed care of patient at 0700. Orders reviewed and ongoing assessments being done. Being treated for multiple problems and remains intubated and ventilator dependant. Requiring deep sedation, on PCV. Remains on Levophed Gtt for BP support. Applied SCD's bilaterally for DVT prevention. Sara and mother in law at bedside.
[2019-03-11] MEDS: VANCOMYCIN 1,500 MG in D5W 5% 250 ML IV SCH (09:03)
[2019-03-11] MEDS: PANTOPRAZOLE 40 MG/10 ML VIAL IV SCH (09:45)
[2019-03-11] MEDS ORDERED: LORazepam 2MG/ML-1ML VIAL ONE (14:54)
[2019-03-11] MEDS ORDERED: MORPHINE SULF INJ 2 MG/ML SYRINGE 1ML ONE (14:55)
[2019-03-11] MEDS ORDERED: MORPHINE SULFATE 4 MG/ML SYR/VIAL IV PRN (15:00)
[2019-03-11] MEDS ORDERED: LORazepam 2MG/ML-1ML VIAL IV PRN (15:00)
--- NOTE | 2019-03-11 15:00 | NUR ---
TERMINAL WEAN; Family states readiness for terminal extubation. Patient medicated with Ativan and Morphine per comfort care protocol. Patient extubated by RT, no supplemental oxygen applied.
--- NOTE | 2019-03-11 15:29 | NUR ---
Dr. Rodriguez rounded at 1220. Examined and chart reviewed. Spoke with Sara and mother in law. Discussed medical condition and poor prognosis. Is a DNR and decision was made to terminally wean off ventilator and stop all medications. Parents and extended family arrived to visit and remain at bedside. Roxie WORTHINGTON addressed orders while out to lunch. Provided comfort cart and emotional support.
--- NOTE | 2019-03-11 17:06 | NUR ---
Was pronounced at 1557 by Martin Mayen NP. Family at bedside. Contacted [facility] at 1623 and spoke with them until 1651 (Sue Griffith). Reference number obtained [id number]. Left message with [employer] [facility]drologist at 1653, awaiting call back. Dr. Rodriguez was notified of at 1600.
--- NOTE | 2019-03-11 19:29 | NUR ---
Spoke with Nadia Kennedy tourist adviser from [facility] at 1716, released # [phone]. Post mortem care done. Contacted [email or web address] [phone], arrangements made by father, Rad Wilson. Awaiting diamond picker, [facility] aftercare from [facility], . All belongings taken by Sara Wilson.
--- NOTE | 2019-03-11 19:30 | NUR ---
REPORT RECEIVED, ASSUMED CARE. PT PREVIOUS SHIFT, STOCKROOM SUPERVISOR AND [facility] CONTACTED. NOTIFIED SECURITY, [facility] FOR BODY TO BE RELEASED PER PT AND PT FAMILY WISHES. RELEASE OF REMAINS SIGNED BY PT AND ALL BELONGINGS GIVEN TO PT FAMILY.
--- NOTE | 2019-03-11 19:51 | NUR ---
[facility] CALLED: SPOKE WITH RADHA GAVE UPDATE.
--- NOTE | 2019-03-11 20:20 | NUR ---
CALLED [facility] ETA 34 MINUTES.
--- NOTE | 2019-03-11 21:03 | NUR ---
[facility] HERE FOR PT, FAMILY @ BEDSIDE.
== END 2019-03-11 21:12 | disposition expired | DRG 208 ==
LOC: EDBD 00:45 → ER 00:48 → TELE 07:37 → ICU WEST 09:57
PROVIDERS: ADMIT Nurse Practitioner Family; ATTEND Internal Medicine
PROC: 5A1945Z Respiratory Ventilation, 24-96 Consecutive Hours (ICD-10-PCS; principal; 2019-03-09)
PROC: 0BH17EZ Insertion of Endotracheal Airway into Trachea, Via Natural or Artificial Opening (ICD-10-PCS; 2019-03-09)
PROC: 0W9B30Z Drainage of Left Pleural Cavity with Drainage Device, Percutaneous Approach (ICD-10-PCS; 2019-03-09)
DX: J96.01 Acute respiratory failure with hypoxia (principal); J93.83 Other pneumothorax; E44.0 Moderate protein-calorie malnutrition; C34.90 Malignant neoplasm of unspecified part of unspecified bronchus or lung; R57.9 Shock, unspecified; C76.1 Malignant neoplasm of thorax; C62.90 Malignant neoplasm of unspecified testis, unspecified whether descended or undescended; Z51.5 Encounter for palliative care; Z80.8 Family history of malignant neoplasm of other organs or systems; Z85.47 Personal history of malignant neoplasm of testis
CPT/HCPCS: 31500; 32551; 36415; 36600; 51702; 71045; 80048; 80053; 82805; 85025; 87040; 87070; 87081; 87086; 87205; 94002; 94003; 94640; 96374; 96375; 99291; A6257; C9113; G0378; J0330; J2001; J2250; J2543; J2704; J7060